=== PATIENT | female | born 1955 | race Caucasian/White ===

== ENCOUNTER → 2016-09-18 | Outpatient (CLI) | payer BC ==
[~2016-09-18] MED LIST: ACET-749 PO; ASPI-232 PO; ATEN-173 PO; CALC-5 PO; CHOL1000 PO; CYAN10004 PO; CYAN1DRO SC; DNSIS60 SQ; DULO60CA44 PO; FERR27TA5; KETO10TA PO; MULTTAB58 PO; NRN/600 PO; OXYC-57 PO; RIVA1TAB4 PO; SERT50TA PO; TOPI100T20 PO; ZCRT/40 PO; ZOLE5INJ IM
--- NOTE | 2016-09-18 10:54 | DIAGNOSTIC IMAGING REPORT ---
MRI OF THE LEFT SHOULDER CLINICAL HISTORY: Left shoulder pain. Clinical concern for adhesive capsulitis. COMPARISON STUDY: No priors. TECHNIQUE: MRI of the left shoulder was performed utilizing various T1 and T2 weighted sequences in the axial, sagittal, coronal planes. IV contrast was not administered for this examination. Note that interpretation is suboptimal without plain film correlate. The examination is significantly degraded by motion artifact. FINDINGS: Rotator cuff: There is tendinopathy of the supraspinatous tendon with a full-thickness tear involving the anterior fibers at the leading age. This is seen on coronal T2 fat-sat image #8 of 19, and the tear measures approximately 9 mm in AP diameter and 4 mm in length. There is no associated musculotendinous retraction. The infraspinatus tendon appears intact. The teres minor and subscapularis tendons are preserved. There is trace subacromial and subdeltoid bursal fluid. Productive degenerative change is seen at the acromioclavicular joint. Biceps tendon: The long head of the biceps tendon is normal in signal intensity and located within the bicipital groove. The anchor is maintained. Labrum: There is mild degenerative fraying of the labrum. Shoulder joint: There is no joint effusion. There is thickening of the coracohumeral ligament as well as the inferior glenohumeral ligament. There is questionably increased signal in the rotator interval. The articular cartilage over the glenoid is well maintained. Normal marrow signal intensity is preserved of the visualized osseous structures. Musculature and soft tissues: The musculature of the shoulder is normal in bulk and signal intensity. No atrophy is seen. IMPRESSION: 1. Motion degraded examination. 2. There is tendinopathy with a full-thickness tear at the leading edge of the supraspinatous tendon as detailed above. No musculotendinous retraction is seen. 3. There is mild thickening of the coracohumeral ligament as well as the inferior glenohumeral ligament. There is questionably increased signal in the rotator interval. These findings are nonspecific but could be seen in the setting of adjacent capsulitis is clinically suggested. Clinical correlation will be essential. Electronically signed by: Khoi Booker M.D. 09/18/2016 10:53 AM Dictated Date/Time: 09/18/2016 10:40 AM
== END ==
LOC: C.MRIBC 09:32
PROVIDERS: ATTEND Orthopaedic Surgery Orthopaedic Surgery of the Spine
DX: M75.02 Adhesive capsulitis of left shoulder (principal)

== ENCOUNTER → 2016-09-25 | Outpatient (CLI) | payer BC ==
[2016-09-25 12:14] LABS: BASO % 0.6 %; BASO ABS # 0.03 K/uL (0-0.2); COMPLETE YES; EOS % 3.6 %; HEMATOCRIT 40.3 % (37-47); LYMPH % 32.1 %; LYMPH ABS # 1.53 K/uL (1.2-3.4); MEAN CELL VOLUME 98.8 fL (80-100); MEAN CORPUSCULAR HEMOGLOBIN 32.4 pg (25-34); MEAN CORPUSCULAR HGB CONC 32.8 g/dl (32-36); MEAN PLATELET VOLUME 9.9 fL (7.4-10.4); MONO % 8.2 %; NEUT % 55.5 %; PLATELET COUNT 226 K/uL (130-400); RED BLOOD COUNT 4.08 M/uL (4.2-5.4); WHITE BLOOD COUNT 4.77 K/uL (4.8-10.8)
[2016-09-25 13:10] LABS: BLOOD UREA NITROGEN 17 mg/dl (7-18); BUN/CREATININE RATIO 25.7 (10-20); CALCIUM 7.9 mg/dl (8.5-10.1); CARBON DIOXIDE 22 mmol/L (21-32); CHLORIDE 116 mmol/L (98-107); CREATININE 0.65 mg/dl (0.60-1.20); GLUCOSE 81 mg/dl (70-99); SODIUM 146 mmol/L (136-145)
== END | disposition home or self-care (01) ==
LOC: C.CPL 11:10
PROVIDERS: ATTEND Orthopaedic Surgery
DX: Z01.818 Encounter for other preprocedural examination (principal)

== ENCOUNTER → 2016-09-30 | Outpatient (CLI) | payer BC ==
[~2016-09-30] MED LIST changes: -SERT50TA PO; -ZOLE5INJ IM
[2016-09-30 12:27] LABS: PROTHROMBIN TIME (PATIENT) 10.5 SECONDS (9.0-12.0)
== END | disposition home or self-care (01) ==
LOC: C.LAB 11:14
PROVIDERS: ATTEND Orthopaedic Surgery
DX: Z01.812 Encounter for preprocedural laboratory examination (principal); M75.02 Adhesive capsulitis of left shoulder

== ENCOUNTER → 2016-10-03 | Day surgery (SDC) | payer BC ==
[2016-09-26 12:16] VITALS: Ht 151.6 cm; Wt 71.4 kg
[~2016-10-03] VITALS: Ht 151.6 cm; Wt 71.4 kg
[~2016-10-03] MED LIST changes: +ATROPINE SULFATE 0.1 MG/ML 5ML SYR IV PRN; +BUPIVACAINE/EPINEPHRINE 0.25% 1:200,000 30 ML VIAL ONE; +CEFAZOLIN 2000 MG/60 ML D5W IV SCH; +CEFAZOLIN SOD 1 GM VIAL ONE; +DEXAMETHASONE SOD INJ 4 MG/ML VIAL ONE; +EpHEDrine SULFATE 50MG/5ML SYR ONE; +EpINEphrine INJ 1MG/ML AMP 1 MG/ML AMP ONE; +FENTANYL CITRATE INJ 50 MCG/1 ML 2 ML VIAL IV PRN; +FENTANYL CITRATE INJ 50 MCG/1 ML 2 ML VIAL ONE; +GLYCOPYRROLATE INJ 0.2 MG/ML VIAL ONE; +KETOROLAC TROMETHAMINE 30 MG/ML VIAL IV. PRN; +LABETALOL HCL IV 5 MG/ML 20ML IV PRN; +LACTATED RINGER'S 1000ML 1,000 ML IV SCH; +LIDOCAINE HCL 2% 2 ML VIAL (20MG/ML) ONE; +METHYLPREDNISOLONE ACETATE 80 MG/ML VIAL ONE; +MIDAZOLAM HCL 1 MG/ML 2ML VIAL ONE; +NEOSTIGMINE METHYLSULFATE 5 MG/5 ML SYR ONE; +ONDANSETRON INJ 2 MG/ML 2 ML VIAL IV PRN; +ONDANSETRON INJ 2 MG/ML 2 ML VIAL ONE; +OXYCODONE/ACETAMINOPHEN 5-325 TAB PO PRN; +PROMETHAZINE HCL INJ 6.25 MG in SODIUM CHLORIDE 0.9% 50ML 50 ML IV PRN; +PROPOFOL IV EMULSION 10 MG/ML 20 ML VIAL IV ONE; +ROCURONIUM BROMIDE 10 MG/ML 5 ML VIAL ONE; +ROPIVACAINE 0.5% 5 MG/ML 30 ML VIAL ONE; +SODIUM CHLORIDE 0.9% 1000ML 1,000 ML IV SCH
--- NOTE | 2016-10-03 06:55 | History & Physical Bridge - SC ---
H&P Re-Evaluation Bridge Note: I have examined the patient, reviewed the History & Physical and in the interval since the performance of the History & Physical I have noted the following changes of clinical significance: No changes noted
--- NOTE | 2016-10-03 09:18 | Discharge Instructions-SurgCtr ---
Discharge Instructions Date of Service Oct 03, 2016. Visit Reason for Visit: Left Adhesive Capsulitis Of Shoulder, Cuff Tear Discharge Discharge Diagnosis / Problem: SAME ABOVE Discharge Goals Goal(s): Decrease discomfort, Improve function Medications Stopped Medications Name(s): XARELTO STOPPED FRIDAY. Restart Stopped Medication(s): AUGUST RESTART 10/03/2016 Activity Recommendations Activity Limitations: as noted below Lifting Limitations: gradually increase as tolerated Exercise/Sports Limitations: gradually increase as tolerated Driving or Machine Use: WHEN OUT OF THE SLING AND PAIN CONTROLLED Anesthesia . Post Anesthesia Instructions: If you have had General Anesthesia or IV Sedation: * Do not drive today. * Resume driving when surgeon permits. * Do not make important decisions or sign legal documents today. * Call surgeon for: 1. Temperature elevations greater than 101 degrees F. 2. Uncontrollable pain. 3. Excessive bleeding. 4. Persistent nausea and vomiting. 5. Medication intolerance (nausea, vomiting or rash). * For nausea and vomiting use only clear liquids such as: tea, soda, bouillon until nausea subsides, then gradually increase diet as tolerated. * If you have any concerns or questions, call your surgeon's office. If physician is unavailable and it is an emergency, call 911 or go to the nearest emergency room. . Instructions / Follow-Up Instructions / Follow-Up MEDICATIONS: * Resume previous medications unless instructed otherwise by your surgeon. * Always take pain medication on a full stomach or with food to avoid upset stomach. * Do not drink alcohol or drive while taking narcotics. * Ibuprofen or Tylenol may be taken if narcotic not needed. SPECIAL CARE INSTRUCTIONS: __ None _X_ Keep extremity elevated and iced x 48 hours; apply ice 20-30 minutes 8-10 times/day. May remove at night. _X_ Sling (WEAR NEEDED ONLY FOR COMFORT) __24 hrs/day __ Remove at night __ Shoulder Immobilizer __ 24 hrs/day __ Remove at night _X_ Dressing __ Maintain until seen in office, may shower with plastic over site _X_ Remove dressings in 24-48 hours and then may shower _X_ Cover incisions with band-aids after showering __ Do not remove steri-strips Call physician if chills or temperature rises above 102 degrees or pain unrelieved by prescribed pain medications at . . Diet Recommendations Home Diet: no limitations Fluid Restriction: None Pending Studies Studies pending at discharge: no Medical Emergencies . Who to Call and When: Medical Emergencies: If at any time you feel your situation is an emergency, please call 911 immediately. . Non-Emergent Contact Non-Emergency issues call your: Primary Care Provider Call Non-Emergent contact if: you have a fever, temperature is above 101.5 . . "Provider Documentation" section prepared by Felix Bearden. .
[2016-10-03 10:00] VITALS: TEMP 36.3
--- NOTE | 2016-10-03 10:27 | Anesthesia Progress Nt - [facility] ---
Anesthesia Post Op Note Date & Time Oct 03, 2016 at 10:26 Vital Signs Pain Intensity: 0 Vital Signs Past 12 Hours Date Time Temp Pulse Resp B/P (MAP) Pulse Ox O2 Delivery O2 Flow Rate FiO2 10/03/16 10:00 36.3 68 16 129/78 (95) 99 Room Air 10/03/16 09:48 69 6 10/03/16 09:48 69 6 97 10/03/16 09:47 36.4 68 14 175/70 98 Room Air 10/03/16 09:46 178/68 10/03/16 09:43 69 0 98 10/03/16 09:43 69 0 10/03/16 09:41 185/62 10/03/16 09:38 68 17 99 10/03/16 09:38 68 17 10/03/16 09:35 159/59 10/03/16 09:33 68 10 10/03/16 09:33 68 10 100 10/03/16 09:28 68 13 10/03/16 09:28 67 13 100 10/03/16 09:26 180/69 10/03/16 09:23 65 16 10/03/16 09:23 65 16 100 10/03/16 09:20 185/72 10/03/16 09:20 182/64 10/03/16 09:19 194/79 10/03/16 09:18 72 19 10/03/16 09:18 72 19 100 10/03/16 09:17 187/68 10/03/16 09:16 36.0 72 16 187/68 100 Diffusion Mask 10/03/16 07:48 0 10/03/16 07:47 0 10/03/16 07:45 152/86 10/03/16 07:42 56 10/03/16 07:42 55 11 100 10/03/16 07:41 147/70 10/03/16 07:37 54 16 100 10/03/16 07:37 54 10/03/16 07:36 153/79 10/03/16 07:33 53 17 96 10/03/16 07:33 52 10/03/16 07:32 55 8 100 10/03/16 07:32 53 10/03/16 07:31 147/78 10/03/16 07:28 53 10/03/16 07:28 53 18 100 10/03/16 07:27 52 9 100 10/03/16 07:27 52 10/03/16 07:26 146/75 10/03/16 07:23 53 21 100 10/03/16 07:23 52 10/03/16 07:22 53 10/03/16 07:22 53 15 100 10/03/16 07:21 144/74 10/03/16 07:17 58 10/03/16 07:17 58 13 100 10/03/16 07:16 61 10/03/16 07:16 62 13 100 10/03/16 07:15 156/81 10/03/16 07:13 158/93 10/03/16 07:11 57 10/03/16 07:11 59 0 100 10/03/16 07:06 56 0 10/03/16 07:06 55 10/03/16 07:01 58 0 100 10/03/16 07:01 58 10/03/16 06:56 56 10/03/16 06:51 57 10/03/16 06:46 56 10/03/16 06:41 57 0 10/03/16 06:28 36.5 56 16 155/77 (103) 100 Room Air Notes Mental Status: alert / awake / arousable, participated in evaluation Pt Amnestic to Procedure: Yes Nausea / Vomiting: adequately controlled Pain: adequately controlled Airway Patency, RR, SpO2: stable & adequate BP & HR: stable & adequate Hydration State: stable & adequate Anesthetic Complications: no major complications apparent Pt's IV at right antecubital fossa infiltrated at time of induction. Tissue around area looks good post op - patient not experiencing any discomfort in the area, very little swelling or erythema.
[2016-10-03 10:37] VITALS: BP 116/67; PULSE 67; O2SAT 98
--- NOTE | 2016-10-03 15:38 | [facility] Post Operative Brief Note ---
Immediate Operative Summary Operative Date Oct 03, 2016. Pre-Operative Diagnosis Left Shoulder Adhesive Capsulitis, Small Rotator Cuff Tear Post-Operative Diagnosis Same Procedure(s) Performed Left Shoulder Arthroscopic Capsular Release, Extensive Debridement, Acromioplasty Surgeon Dr. Dillon Business Process Consultant Surgeon(s) Noman Bearden PA-C Estimated Blood Loss 5 ml Findings as above Specimens None Complication(s) None Disposition Recovery Room / PACU
--- NOTE | 2016-10-03 19:23 | OPERATIVE REPORT ---
DATE OF OPERATION: 10/03/2016 PREOPERATIVE DIAGNOSIS: Adhesive capsulitis of the left shoulder with severe subacromial impingement and possible small rotator cuff tear. POSTOPERATIVE DIAGNOSIS: Adhesive capsulitis of the left shoulder with a large subacromial spur and no rotator cuff tear. PROCEDURE: Left shoulder diagnostic arthroscopy with extensive debridement, lysis of adhesions, acromioplasty. SURGEON: Dr. Sachin Dillon. DRUM HANDLER: Lee Bearden PA-C, whose assistance was necessary for positioning the arm and helping with instrumentation. ANESTHESIA: General with a left interscalene nerve block. COMPLICATIONS: None. CONDITION: Stable to PACU. INDICATIONS: Danii is a pleasant 61-year-old female, who presented to my office with complaints of tightness and pain in her left shoulder. MRI and clinical examination were diagnostic for adhesive capsulitis and a large subacromial spur with possible small cuff tear. After failing conservative treatment, she elected to undergo arthroscopy. DESCRIPTION OF PROCEDURE: On 10/03/2016, she arrived at [facility] for the above procedure. She was seen in the preoperative holding area and the operative extremity was identified and signed. She was given a preoperative antibiotic and a left interscalene nerve block. She was taken back to the operating room, laid on the table in supine position and put under general anesthesia. She was then put into the beach chair position. The left shoulder was prepped and draped in sterile fashion. Time-out was done. The patient and operative extremity was properly identified. A scope was introduced in the posterior portal. Diagnostic arthroscopy showed no cartilage damage to the humeral head or the glenoid. There was significant tightness of the shoulder. There was scarring of the rotator interval as well as the middle and anterior inferior glenohumeral ligaments. An anterior portal was made. An ablator was used to start lysis of adhesions of the entire rotator interval. I released up to the biceps gwen mechanism and down around the base of the coracoid. A shaver was used to do a debridement of any remnant of tissue. The ablator was then used to continue the lysis of adhesions till the middle glenohumeral ligament and the anterior inferior glenohumeral ligament. A shaver was used once again to remove any unstable tissue fragments. This significantly opened up the shoulder. The biceps tendon was checked and completely intact. The rotator cuff was intact from the articular side. The scope was then put into the subacromial space. A lateral portal was made. A shaver was used to do a complete subacromial and subdeltoid bursectomy. The bursal side of the rotator cuff was examined extensively without evidence of tear. An ablator was used to tease the coracoacromial ligament off the undersurface of the acromion and a 5-0 carmelita was used to complete an acromioplasty of a Bigliani type 3 acromion. A shaver was used to remove any excess debris. Arthroscopic instruments were then removed from the shoulder. Manipulation was done under anesthesia. I was able to get full range of motion of the shoulder. Portal sites were then closed with 3-0 nylon. The glenohumeral joint was then injected with 80 mg of Depo-Medrol. She was then placed in a regular arm sling, extubated, transferred to [facility] and taken to the postanesthesia care unit in stable condition. She tolerated the procedure well. I attest to the content of the Intraoperative Record and any orders documented therein. Any exception s are noted below.
== END | disposition home or self-care (01) ==
LOC: X.SURG 06:11
PROVIDERS: ATTEND Orthopaedic Surgery
DX: M75.02 Adhesive capsulitis of left shoulder (principal); M25.812 Other specified joint disorders, left shoulder; M75.82 Other shoulder lesions, left shoulder; I10 Essential (primary) hypertension; E66.9 Obesity, unspecified; E11.9 Type 2 diabetes mellitus without complications; I48.0 Paroxysmal atrial fibrillation; Z98.890 Other specified postprocedural states; Z98.84 Bariatric surgery status; Z90.49 Acquired absence of other specified parts of digestive tract; Z68.36 Body mass index [BMI] 36.0-36.9, adult; Z85.038 Personal history of other malignant neoplasm of large intestine; Z82.49 Family history of ischemic heart disease and other diseases of the circulatory system; Z83.3 Family history of diabetes mellitus; Z80.1 Family history of malignant neoplasm of trachea, bronchus and lung

== ENCOUNTER → 2017-01-02 | Day surgery (SDC) | payer BC ==
[2017-01-01 09:06] VITALS: Ht 152.4 cm; Wt 70.5 kg
[~2017-01-02] VITALS: Ht 152.4 cm; Wt 70.5 kg
[~2017-01-02] MED LIST changes: -ACET-749 PO; +BUPIVACAINE 0.5 % 5 MG/1 ML PF 10ML VIAL ONE; -BUPIVACAINE/EPINEPHRINE 0.25% 1:200,000 30 ML VIAL ONE; -CEFAZOLIN 2000 MG/60 ML D5W IV SCH; -CEFAZOLIN SOD 1 GM VIAL ONE; -DEXAMETHASONE SOD INJ 4 MG/ML VIAL ONE; -EpHEDrine SULFATE 50MG/5ML SYR ONE; +EpHEDrine SULFATE INJ 50 MG/ML AMP IV PRN; -EpINEphrine INJ 1MG/ML AMP 1 MG/ML AMP ONE; -GLYCOPYRROLATE INJ 0.2 MG/ML VIAL ONE; -KETO10TA PO; -KETOROLAC TROMETHAMINE 30 MG/ML VIAL IV. PRN; -LABETALOL HCL IV 5 MG/ML 20ML IV PRN; -LIDOCAINE HCL 2% 2 ML VIAL (20MG/ML) ONE; -NEOSTIGMINE METHYLSULFATE 5 MG/5 ML SYR ONE; -ONDANSETRON INJ 2 MG/ML 2 ML VIAL ONE; -PROMETHAZINE HCL INJ 6.25 MG in SODIUM CHLORIDE 0.9% 50ML 50 ML IV PRN; -PROPOFOL IV EMULSION 10 MG/ML 20 ML VIAL IV ONE; -ROCURONIUM BROMIDE 10 MG/ML 5 ML VIAL ONE
[2017-01-02 13:21] VITALS: TEMP 36.7
--- NOTE | 2017-01-02 15:44 | Discharge Instructions-SurgCtr ---
Discharge Instructions Date of Service Jan 02, 2017. Visit Reason for Visit: Left Shoulder Adhesive Capsulitis Discharge Discharge Diagnosis / Problem: SAME ABOVE Discharge Goals Goal(s): Decrease discomfort, Improve function Activity Recommendations Activity Limitations: as noted below Lifting Limitations: gradually increase as tolerated Exercise/Sports Limitations: gradually increase as tolerated Shower/Bathe: tomorrow Driving or Machine Use: WHEN OUT OF THE SLING AND OFF OF MEDICATIONS Anesthesia . Post Anesthesia Instructions: If you have had General Anesthesia or IV Sedation: * Do not drive today. * Resume driving when surgeon permits. * Do not make important decisions or sign legal documents today. * Call surgeon for: 1. Temperature elevations greater than 101 degrees F. 2. Uncontrollable pain. 3. Excessive bleeding. 4. Persistent nausea and vomiting. 5. Medication intolerance (nausea, vomiting or rash). * For nausea and vomiting use only clear liquids such as: tea, soda, bouillon until nausea subsides, then gradually increase diet as tolerated. * If you have any concerns or questions, call your surgeon's office. If physician is unavailable and it is an emergency, call 911 or go to the nearest emergency room. . Diet Recommendations Home Diet: no limitations Fluid Restriction: None Pending Studies Studies pending at discharge: no Work Instructions Return To Work: 3 days (WHEN PAIN IS CONTROLLED ) Lifting Limitations: none Medical Emergencies . Who to Call and When: Medical Emergencies: If at any time you feel your situation is an emergency, please call 911 immediately. . Non-Emergent Contact Non-Emergency issues call your: Primary Care Provider Call Non-Emergent contact if: you have a fever, temperature is above 101.5 . . "Provider Documentation" section prepared by Felix Bearden. .
--- NOTE | 2017-01-02 15:54 | [facility] Post Operative Brief Note ---
Immediate Operative Summary Operative Date Jan 02, 2017. Pre-Operative Diagnosis Left Shoulder Adhesive Capsulitis Post-Operative Diagnosis Same Procedure(s) Performed Left Shoulder Manipulation Under Anesthesia Surgeon Dr Dillon Staff Trainer Surgeon(s) Lee Bearden PA-C Estimated Blood Loss 0ml Findings as above Specimens None Complication(s) None Disposition Recovery Room / PACU
--- NOTE | 2017-01-02 15:58 | Anesthesiology Progress Note ---
Anesthesia Post Op Note Date & Time Jan 02, 2017 at 15:57 Vital Signs Pain Intensity: 0 Vital Signs Past 12 Hours Date Time Temp Pulse Resp B/P (MAP) Pulse Ox O2 Delivery O2 Flow Rate FiO2 01/02/17 15:41 90/73 01/02/17 15:38 73 7 98 01/02/17 15:38 73 01/02/17 15:36 142/69 01/02/17 15:33 81 01/02/17 15:33 81 8 99 01/02/17 15:31 142/76 01/02/17 15:28 81 01/02/17 15:28 81 13 99 01/02/17 15:26 154/81 01/02/17 15:23 82 45 99 01/02/17 15:23 82 01/02/17 15:21 148/68 01/02/17 15:18 72 13 100 01/02/17 15:18 72 01/02/17 15:16 155/77 01/02/17 15:13 70 01/02/17 15:13 71 0 100 01/02/17 15:11 155/74 01/02/17 15:08 75 100 01/02/17 15:08 75 01/02/17 15:06 147/81 01/02/17 15:03 68 100 01/02/17 15:03 66 01/02/17 15:01 136/83 01/02/17 14:58 68 100 01/02/17 14:58 69 01/02/17 14:56 142/78 01/02/17 14:53 65 01/02/17 14:53 65 155/73 100 01/02/17 14:48 65 01/02/17 13:21 36.7 66 16 137/84 (101) 97 Room Air Notes Mental Status: alert / awake / arousable, participated in evaluation Pt Amnestic to Procedure: Yes Nausea / Vomiting: adequately controlled Pain: adequately controlled Airway Patency, RR, SpO2: stable & adequate BP & HR: stable & adequate Hydration State: stable & adequate Anesthetic Complications: no major complications apparent
[2017-01-02 16:24] VITALS: BP 128/76; PULSE 66; O2SAT 99
--- NOTE | 2017-01-02 20:03 | OPERATIVE REPORT ---
DATE OF OPERATION: 01/02/2017 PREOPERATIVE DIAGNOSIS: Adhesive capsulitis of the left shoulder. POSTOPERATIVE DIAGNOSIS: Same. PROCEDURE: Manipulation under anesthesia, left shoulder. SURGEON: Dr. Sachin Dillon. LABORATORY ANALYST: Lee Bearden PA-C, whose assistance was necessary to help position the patient and help with manipulation. ANESTHESIA: Sedation with a left interscalene nerve block. COMPLICATIONS: None. CONDITION: Stable to PACU. INDICATIONS: Danii is a pleasant 61-year-old female who I did a capsular release on about 3 months ago. She had initially full range of motion, but unfortunately, she tightened back up. She elected to proceed with manipulation. On 01/02/2017, she arrived at [facility] for the above procedure. She was seen in the preoperative holding area and the operative extremity was identified and signed. She was given a left interscalene nerve block and taken back to the operating room, laid on the table in supine position and given basic sedation. A time-out was done and the patient and operative extremity was properly identified. On preoperative physical examination, she had about 80 degrees of abduction and 50 degrees of external rotation and 20 degrees of internal rotation. A gentle manipulation was then done under anesthesia. I was able to break up the adhesions mostly in the interval as well as the inferior glenohumeral ligament. I was able to get full range of motion of her shoulder. I then gave her an intraarticular injection with 80 mg of Depo-Medrol and 5 mL of Marcaine. A Band-Aid was placed. She was then placed in an arm sling and taken to the postanesthesia care unit in stable condition. She tolerated the procedure well. I attest to the content of the Intraoperative Record and any orders documented therein. Any exception s are noted below.
== END | disposition home or self-care (01) ==
LOC: X.SURG 12:57
PROVIDERS: ATTEND Orthopaedic Surgery
DX: M75.02 Adhesive capsulitis of left shoulder (principal); F32.9 Major depressive disorder, single episode, unspecified; K44.9 Diaphragmatic hernia without obstruction or gangrene; Z98.84 Bariatric surgery status; Z90.49 Acquired absence of other specified parts of digestive tract; Z83.3 Family history of diabetes mellitus; Z82.49 Family history of ischemic heart disease and other diseases of the circulatory system

== ENCOUNTER 2017-11-13 15:05 | Emergency (ER) | payer BC, OTHER ==
[~2017-11-13] VITALS: Ht 152.4 cm; Wt 68.8 kg
[~2017-11-13 15:05] MED LIST changes: -ATEN-173 PO; -ATROPINE SULFATE 0.1 MG/ML 5ML SYR IV PRN; -BUPIVACAINE 0.5 % 5 MG/1 ML PF 10ML VIAL ONE; -CYAN1DRO SC; -EpHEDrine SULFATE INJ 50 MG/ML AMP IV PRN; -FENTANYL CITRATE INJ 50 MCG/1 ML 2 ML VIAL IV PRN; -FENTANYL CITRATE INJ 50 MCG/1 ML 2 ML VIAL ONE; -FERR27TA5; +FERR27TA5 PO; -LACTATED RINGER'S 1000ML 1,000 ML IV SCH; -METHYLPREDNISOLONE ACETATE 80 MG/ML VIAL ONE; -MIDAZOLAM HCL 1 MG/ML 2ML VIAL ONE; -ONDANSETRON INJ 2 MG/ML 2 ML VIAL IV PRN; -OXYC-57 PO; -OXYCODONE/ACETAMINOPHEN 5-325 TAB PO PRN; -ROPIVACAINE 0.5% 5 MG/ML 30 ML VIAL ONE; -SODIUM CHLORIDE 0.9% 1000ML 1,000 ML IV SCH; -TOPI100T20 PO
[2017-11-13 15:09] VITALS: TEMP 36.8; Ht 152.4 cm; Wt 68.8 kg
[2017-11-13] MEDS ORDERED: CYAN1DRO SC (15:26)
--- NOTE | 2017-11-13 16:16 | DIAGNOSTIC IMAGING REPORT ---
L-SPINE MIN 4 VIEWS ROUTINE CLINICAL HISTORY: Low back pain. Clinical accident. COMPARISON STUDY: No previous studies for comparison. FINDINGS: There is no pathologic bowel dilatation. There are surgical clips within the right upper quadrant consistent with a prior cholecystectomy. There are postsurgical changes of an L4-5 discectomy and interbody fusion. There is posterior pedicle screw fixation at the L4, L5, and S1 levels. No acute fractures or traumatic subluxations are visualized. IMPRESSION: 1. Postsurgical changes 2. No acute fractures or traumatic subluxations are visualized Electronically signed by: Rob Perez M.D. 11/13/2017 4:15 PM Dictated Date/Time: 11/13/2017 4:14 PM
[2017-11-13] MEDS ORDERED: ATEN-173 PO (16:19)
[2017-11-13] MEDS ORDERED: CYM/30 PO (16:24)
[2017-11-13] MEDS ORDERED: LXP10 PO (16:24)
[2017-11-13] MEDS ORDERED: LYR100 PO (16:24)
[2017-11-13] MEDS ORDERED: MORP15TA PO (16:24)
[2017-11-13 17:00] VITALS: BP 124/67; PULSE 66; O2SAT 98
[2017-11-13] MEDS ORDERED: TOPI100T20 PO (18:37)
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
== END 2017-11-13 17:00 | disposition home or self-care (01) ==
LOC: C.EDB 15:07 → C.EDD 17:00
DX: M54.5 Low back pain (principal); V49.40XA Driver injured in collision with unspecified motor vehicles in traffic accident, initial encounter; Z98.890 Other specified postprocedural states; Z79.891 Long term (current) use of opiate analgesic; Z79.899 Other long term (current) drug therapy; Z79.82 Long term (current) use of aspirin

== ENCOUNTER 2022-11-04 08:59 | Inpatient (IN) ==
--- NOTE | 2022-11-04 09:25 | Emergency Department Note ---
ED Provider Note History of Present Illness Chief Complaint: Arm Pain Stated Complaint: RT ARM INJURY Time Seen by Provider: 11/04/22 09:06 This patient is a 67-year-old female who presents to the emergency department for evaluation of multiple falls over the past week. Patient reports that she fell twice 4 days ago while trying to get out of the car. She states that she lost her balance reaching for the door and "face planted." She injured her right arm/shoulder. Patient states that she also fell out of bed last night. She was trying to get her pills organized for the day when she dropped some and fell when bending over. She did strike her head during a few of the falls. She primarily complains of pain in the right arm with significant bruising and swelling throughout the arm. She has a wound on her right leg which she has been seeing the wound clinic for and she states it has been improving significantly. She normally has some swelling and redness of that calf and states it is looking quite good at this time. Patient states that overall she has been feeling okay other than these falls. Home Medications Medication Instructions Recorded Confirmed Type denosumab 60 mg/mL subcutaneous 60 mg subcut Q6MO #1 mL 01/26/19 11/04/22 Rx syringe (Prolia) pregabalin 100 mg capsule (Lyrica) 100 mg PO TID #90 caps 01/26/19 11/04/22 Rx multivitamin (Multiple Vitamins 1 tab PO QAM 04/05/19 11/04/22 History tablet) simvastatin 40 mg tablet 20 mg PO QPM 10/11/19 11/04/22 History calcium carbonate 500 mg calcium 500 mg PO QAM 11/04/19 11/04/22 History (1,250 mg) tablet (Calcium 500) cholecalciferol (vitamin D3) 25 25 mcg PO QAM 11/04/19 11/04/22 History mcg (1,000 unit) tablet (Vitamin D3) ferrous sulfate 325 mg (65 mg 0 mg PO QPM 11/04/19 11/04/22 History iron) tablet aspirin 81 mg tablet,delayed 81 mg PO QAM 08/22/21 11/04/22 History release mirabegron 25 mg tablet,extended 25 mg PO QAM 08/22/21 11/04/22 History release 24 hr (Myrbetriq) sertraline 50 mg tablet 50 mg PO QAM 08/22/21 11/04/22 History furosemide 20 mg tablet (Lasix) 20 mg PO DAILY 10/07/22 11/04/22 History omeprazole 20 mg tablet,delayed 20 mg PO DAILY PRN Other 10/07/22 11/04/22 History release morphine 15 mg immediate release 15 mg PO Q4H PRN Pain 10/21/22 11/04/22 History tablet Allergies Allergy/AdvReac Type Severity Reaction Status Date / Time sulfamethoxazole Allergy Mild rash Verified 10/21/22 10:07 [From Bactrim] trimethoprim [From Bactrim] Allergy Mild rash Verified 10/21/22 10:07 Past Med/Surg History Medical History Ambulatory dysfunction Anemia Atrial fibrillation DX 2008 - FOLLOWS W/ DR. ACEVEDO -- TAKES XARELTO PRN ATRIAL FIB Chronic back pain Chronic headaches Degenerative disc disease Depression GERD (gastroesophageal reflux disease) History of esophageal dilatation Hyperlipemia Hypomagnesemia Malignant neoplasm of colon H/O Osteoporosis Right humeral fracture Spinal cord stimulator status Surgical History H/O gastric bypass History of ankle surgery RT History of bilateral breast reduction surgery History of brain surgery 2009 - removal benign tumor History of cardiac catheterization 2005 - [facility] - NO STENTS/ANGIOPLASTY History of carpal tunnel release Rt History of cataract surgery left History of cervical spinal surgery ROM WNL History of cholecystectomy History of colonoscopy History of colonoscopy with polypectomy malignant polyp History of D&C History of esophagogastroduodenoscopy (EGD) History of lumbar spinal fusion X 2 History of repair of hiatal hernia History of tooth extraction History of total abdominal hysterectomy and bilateral salpingo-oophorectomy W/ APPENDECTOMY S/P insertion of spinal cord stimulator (~02/2021) Status post panniculectomy 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 Status post trigger finger release Family History Mother Diabetes Other No family history of adverse response to anesthesia Social History Smoking Status: Never smoker Second Hand Exposure: Yes; Do You Dip or Chew Tobacco: No; Hx Alcohol Use: Yes Alcohol Intake Frequency: Monthly or Less Hx Substance Use: No Preferred Language: Dominican Communication Ability: Effective Visual Impairment: No Limitations Hearing Ability: Normal Knife Blade Polisher Required: No Beliefs That Will Affect Care: None marital status: Current Living Situation: Spouse current occupational status: retired Other Information That Helps Us Care for You: No Feels Safe at Home: Yes Safety Concerns: Feels Safe At This Time Diet: regular caffeine: No Do you think of yourself as: straight/heterosexual Gender Identity: Female Assistive Devices: Cane and Walker Physical Exam Vital Signs Vital Signs - 24 hr 11/04/22 09:00 11/04/22 09:43 11/04/22 11:12 Temperature 36.8 C Temperature Source Temporal Artery Scan Pulse Rate 87 74 Pulse Rate [Left Finger] 72 Pulse Rate from SpO2 Sensor Pulse Rhythm Regular Respiratory Rate 16 20 Respiratory Effort / Characteristics Non-Labored Spontaneous Respiratory Depth Normal Blood Pressure 111/62 Blood Pressure [Left Arm] 107/63 Blood Pressure Mean 78 Blood Pressure Mean [Left Arm] 77 Pulse Oximetry 100 98 Sepsis Recent Fever Within 48 Hours No Sepsis New/Unexplained Change in Mental Status No Sepsis Action Taken by Nursing No Action Required 11/04/22 11:06 Temperature Temperature Source Pulse Rate 72 Pulse Rate [Left Finger] Pulse Rate from SpO2 Sensor 71 Pulse Rhythm Respiratory Rate 19 Respiratory Effort / Characteristics Respiratory Depth Blood Pressure 107/63 Blood Pressure [Left Arm] Blood Pressure Mean 77 Blood Pressure Mean [Left Arm] Pulse Oximetry 96 Sepsis Recent Fever Within 48 Hours Sepsis New/Unexplained Change in Mental Status Sepsis Action Taken by Nursing VITALS: Vitals are noted on the nurse's note and reviewed by myself. GENERAL: This is a 67-year-old female, in no acute distress, well-developed well-nourished. SKIN: There is significant ecchymosis and dependent edema to the right upper extremity extending from the mid humerus down to the hand. HEAD: Normocephalic atraumatic. Small area of ecchymosis to the right frontal scalp. EARS: External auditory canals clear, tympanic membranes pearly hillman without erythema or effusion bilaterally. No hemotympanum. EYES: Pupils equal round and reactive to light and accommodation. Extraocular movements intact. NECK: Supple without nuchal rigidity. Cervical spine is nontender. HEART: Regular rate and rhythm without murmurs gallops or rubs. LUNGS: Clear to auscultation bilaterally without wheezes, rales or rhonchi. MUSCULOSKELETAL: No obvious deformity noted. There is edema to the anterior right shoulder. There is tenderness to palpation of the anterior right shoulder and proximal humerus. Mild tenderness throughout the right forearm. Decreased range of motion of the right shoulder. Radial pulse 2+. RECTAL: Light brown stool, heme negative. NEURO: Patient was alert and oriented to person place and time. Distal sensation intact. Course Administered Medications Acetaminophen (Acetaminophen 325 Mg Tab) 650 mg PO Q4H PRN PRN Reason: Pain or Fever Stop: 12/04/22 12:23 Last Admin: 11/05/22 08:17 Dose: 650 mg Documented By: Admin: 11/04/22 20:59 Dose: 650 mg Documented By: RENETTA Aspirin (Aspirin 81 Mg Ectab) 81 mg PO QAM [facility] Stop: 12/05/22 08:59 Last Admin: 11/05/22 08:10 Dose: 81 mg Documented By: HERB Calcium Carbonate (Calcium Carbonate 500 Mg Chewable Tab) [facility] [place] Stop: 12/05/22 08:59 Last Admin: 11/05/22 08:10 Dose: 500 mg Documented By: HERB Ferrous Sulfate (Ferrous Sulfate 325 Mg Tab) 325 mg PO QPM [facility] Stop: 12/04/22 20:59 Last Admin: 11/04/22 20:58 Dose: 325 mg Documented By: RENETTA Furosemide (Furosemide 20 Mg Tab) 20 mg PO DAILY MARIEFR Stop: 12/05/22 08:59 Last Admin: 11/05/22 08:11 Dose: 20 mg Documented By: HERB Cefazolin Sodium (Ancef 2000mg) 2,000 mg in 15 mls @ 3.75 mls/min IV Q8H [facility] Stop: 11/11/22 13:59 Last Admin: 11/05/22 13:42 Dose: 3.75 mls/min Documented By: Admin: 11/05/22 06:05 Dose: 3.75 mls/min Documented By: Admin: 11/04/22 20:57 Dose: 3.75 mls/min Documented By: Admin: 11/04/22 16:55 Dose: 3.75 mls/min Documented By: HERB Morphine Sulfate (Morphine Sulfate Ir 15 Mg Tab (Immediate Release)) 15 mg PO Q4H PRN PRN Reason: Pain Stop: 11/18/22 15:21 Last Admin: 11/05/22 11:55 Dose: 15 mg Documented By: Admin: 11/05/22 06:05 Dose: 15 mg Documented By: Admin: 11/04/22 20:57 Dose: 15 mg Documented By: Admin: 11/04/22 16:55 Dose: 15 mg Documented By: HERB Ondansetron HCl (Ondansetron Inj 2 Mg/Ml 2 Ml Vial) 4 mg IV Q6H PRN PRN Reason: Nausea Stop: 12/04/22 12:23 Last Admin: 11/05/22 13:41 Dose: 4 mg Documented By: HERB Pregabalin (Pregabalin 100 Mg Cap) 100 mg PO TID [facility] Stop: 12/04/22 20:59 Last Admin: 11/05/22 13:42 Dose: 100 mg Documented By: Admin: 11/05/22 08:17 Dose: 100 mg Documented By: Admin: 11/04/22 20:57 Dose: 100 mg Documented By: RENETTA Sertraline HCl (Sertraline Hcl 50 Mg Tablet) 50 mg PO QAM [facility] Stop: 12/05/22 08:59 Last Admin: 11/05/22 08:11 Dose: 50 mg Documented By: HERB Simvastatin (Simvastatin 20 Mg Tab) 20 mg PO QPM [facility] Stop: 12/04/22 20:59 Last Admin: 11/04/22 20:58 Dose: 20 mg Documented By: RENETTA Vibegron (Vibegron 75 Mg Tab) 75 mg PO QAM [facility] Stop: 12/05/22 08:59 Last Admin: 11/05/22 08:11 Dose: 75 mg Documented By: HERB Vitamin D (Cholecalciferol 1,000 Units 25 Mcg Tab) 1,000 units PO QAM [facility] Stop: 12/05/22 08:59 Last Admin: 11/05/22 08:11 Dose: 1,000 units Documented By: HERB Discontinued Medications Magnesium Sulfate/Dextrose (Magnesium Sulfate / D5w) 1 gm in 100 mls @ 50 mls/hr IV Q2H [facility] Stop: 11/04/22 16:29 Last Infusion: 11/05/22 00:20 Dose: 0 mls/hr Documented By: Admin: 11/04/22 18:41 Dose: 50 mls/hr Documented By: Infusion: 11/04/22 18:41 Dose: 50 mls/hr Documented By: Admin: 11/04/22 16:55 Dose: 50 mls/hr Documented By: HERB Morphine Sulfate (Morphine Sulfate Ir 15 Mg Tab (Immediate Release)) 15 mg PO NOW STA Stop: 11/04/22 11:38 Last Admin: 11/04/22 12:55 Dose: 15 mg Documented By: TOY Potassium Chloride (Potassium Chloride Crtab 20 Meq Tabcr) 40 meq PO NOW STA Stop: 11/05/22 13:26 Last Admin: 11/05/22 13:42 Dose: 40 meq Documented By: HERB Medical Decision Making Differential Diagnosis Infection, dehydration, metabolic abnormality, hypo/hyperglycemia, electrolyte disturbance, anemia, hypoxia, cardiac sources, intracerebral event, toxicologic, neurologic, as well as other pathologies. Home Medications was personally reviewed by me Laboratory Data Attestation: I reviewed the patient's lab results. 11/04/22 09:20 11/04/22 09:20 Lab Results 11/04/22 11/04/22 11/04/22 Range/Units 09:20 09:20 11:20 WBC 5.31 (4.8-10.8) K/ul RBC 3.01 L (4.20-5.40) M/uL Hgb 9.2 L (12.0-16.0) g/dl Hct 27.5 L (37.0-47.0) % MCV 91.4 (80.0-100.0) fL MCH 30.6 (25.0-34.0) pg MCHC 33.5 (32.0-36.0) g/dL RDW Std Deviation 43.1 (36.4-46.3) fL RDW Coeff of Conchita 13.2 (11.5-14.5) % Plt Count 153 (130-400) K/uL MPV 10.5 (9.4-12.4) fL Immature Gran % (Auto) 0.9 % Neut % (Auto) 61.1 % Lymph % (Auto) 23.7 % [place] % (Auto) 12.2 % Eos % (Auto) 1.5 % Baso % (Auto) 0.6 % Neut # (Auto) 3.24 (1.40-6.50) K/uL Lymph # (Auto) 1.26 (1.2-3.4) K/uL [place] # (Auto) 0.65 H (0.11-0.59) K/uL Eos # (Auto) 0.08 (0-0.50) K/uL Baso # (Auto) 0.03 (0-0.2) K/uL Immature Gran # (Auto) 0.05 (0.01-0.20) K/uL Sodium 141 (136-145) mmol/L Potassium 3.5 (3.5-5.1) mmol/L Chloride 102 (98-107) mmol/L Carbon Dioxide 34 H (21-32) mmol/L Anion Gap 5 (3-11) BUN 21 (6-23) mg/dl Creatinine 0.64 (0.6-1.2) mg/dl Est Cr Clr Drug Dosing 60.4 ml/min Est GFR ( Amer) 106.3 ml/min Est GFR (Non-Af Amer) 91.7 ml/min BUN/Creatinine Ratio 32.8 H (10-20) Glucose 125 H (70-99(Fasting)) mg/dl Calcium 8.4 L (8.6-10.3) mg/dl Magnesium 1.3 L (1.7-2.4) mg/dl Iron 37 (35-150) mcg/dl Unsaturated IBC 126 L (155-355) mcg/dl Transferrin 122 L (200-360) mg/dl Ferritin 123.1 (8-388) ng/ml Total Bilirubin 0.9 (0.2-1.0) mg/dl AST 28 (13-39) U/L ALT 26 (7-52) U/L Alkaline Phosphatase 78 (34-104) U/L Total Protein 5.4 L (6.0-8.3) gm/dl Albumin 2.9 L (3.4-5.0) gm/dl Globulin 2.5 (2.5-4.0) gm/dl Albumin/Globulin Ratio 1.2 (0.9-2) SARS-CoV-2, RNA, NAAT NEGATIVE (NEGATIVE) Imaging Data Attestation: I personally reviewed and interpreted this imaging study as follows: Radiologist's Impression: Cervical Spine CT 11/04/22 09:19 CT cervical spine wo con CLINICAL HISTORY: 67 years-old Female with multiple falls, head injury. COMPARISON: Head CT of same day, CT cervical spine 6 25,015. TECHNIQUE: Multiple axial CT images of the cervical spine were obtained without contrast. A dose lowering technique was utilized adhering to the principles of ALARA. FINDINGS: Anterior plate and screw fusion with discectomy noted at C4-C6. There is progressive near-complete bony fusion of these levels which has progressed compared to the prior. No evidence of hardware complication. Mild multilevel uncovertebral hypertrophy and facet arthrosis of the cervical spine. Severe upper thoracic facet arthrosis. Multiple endplate compression of the T3 vertebral body is likely chronic, however is new from prior. No retropulsion. No acute fracture or subluxation. Mild cervical levoscoliosis. The cervical soft tissues appear unremarkable. The visualized lung apices appe ar clear. IMPRESSION: No acute cervical spine fracture or subluxation. ACT 112: Negative or not required by law. The above report was generated using voice recognition software. It may contain grammatical, syntax or spelling errors. Electronically signed by: Colten Dickson M.D. 11/04/2022 10:35 AM Forearm X-Ray 11/04/22 09:19 XR forearm RT 2V HISTORY: 67 years-old Female right arm pain, injury COMPARISON: Right humerus radiograph the same day TECHNIQUE: 2 views of the right forearm FINDINGS: Moderate diffuse soft tissue swelling. Mild cortical thickening of the distal radial metaphysis. No definite acute fracture, dislocation or opaque foreign body identified. Nondisplaced coronoid process fracture the proximal ulna with mild corticated margins. Questioned acute nondisplaced fracture of the distal humeral metaphysis. IMPRESSION: 1. Cortical thickening of the distal radius suggestive of a healed chronic fracture. 2. Acute to subacute appearing nondisplaced coronoid process fracture. 3. Ill-defined lucency of the distal humeral metaphysis may be artifactual or represent a subtle acute nondisplaced fracture. 4. Moderate diffuse soft tissue swelling. ACT 112: Negative or not required by law. The above report was generated using voice recognition software. It may contain grammatical, syntax or spelling errors. Electronically signed by: Colten Dickson M.D. 11/04/2022 11:30 AM Humerus X-Ray 11/04/22 09:19 XR shoulder RT min 2V routine, XR humerus RT 2V CLINICAL HISTORY: right shoulder pain. Fall. COMPARISON STUDY: None. FINDINGS: Comminuted and displaced right humeral neck fracture which extends through the greater tuberosity of the humeral head. No dislocation. There is up to 1 cm of anterior displacement. The right clavicle is intact. Soft tissue swelling within the right shoulder is noted. The mid to distal humerus is intact. Cervical spinal fusion hardware and spinal stimulator leads are noted. IMPRESSION: 1. Comminuted and displaced right humeral head/neck fracture. 2. No fractures within the mid to distal right humerus. ACT 112: Negative or not required by law. Electronically signed by: Alejandro Walsh M.D. 11/04/2022 10:54 AM Shoulder X-Ray 11/04/22 09:19 XR shoulder RT min 2V routine, XR humerus RT 2V CLINICAL HISTORY: right shoulder pain. Fall. COMPARISON STUDY: None. FINDINGS: Comminuted and displaced right humeral neck fracture which extends through the greater tuberosity of the humeral head. No dislocation. There is up to 1 cm of anterior displacement. The right clavicle is intact. Soft tissue swelling within the right shoulder is noted. The mid to distal humerus is intact. Cervical spinal fusion hardware and spinal stimulator leads are noted. IMPRESSION: 1. Comminuted and displaced right humeral head/neck fracture. 2. No fractures within the mid to distal right humerus. ACT 112: Negative or not required by law. Electronically signed by: Alejandro Walsh M.D. 11/04/2022 10:[address] 11/04/22 09:20 CT OF THE HEAD WITHOUT CONTRAST CLINICAL HISTORY: multiple falls, head injury COMPARISON STUDY: Head CT October 06, 2014. CT DOSE: 1082.50 mGy.cm TECHNIQUE: Helical axial images of the head were obtained without IV contrast. Automated exposure control was utilized for the study. A dose lowering technique was utilized adhering to the principles of ALARA. FINDINGS: No acute intracranial hemorrhage, midline shift or mass effect is present. The ventricular system is unremarkable. The basal cisterns are patent. No extra-axial collections are present. There are no findings to suggest acute dural sinus thrombosis or acute territorial infarct. No significant calvarial abnormalities are present. Visualized portions of the sinuses and mastoid air cells are clear. Left frontal craniotomy is incidentally noted. IMPRESSION: 1. No acute intracranial findings. No change in appearance of the brain. 2. No calvarial fracture. ACT 112: Negative or not required by law. Electronically signed by: Jeremy Arango M.D. 11/04/2022 10:35 AM Chest X-Ray 11/04/22 11:37 XR chest 1V portable CLINICAL HISTORY: weakness COMPARISON STUDY: Chest radiograph October 04, 2022 FINDINGS: Lung volumes are normal. Lungs are clear. There is no pneumothorax or pleural effusion. Cardiac size is normal. Mediastinal contours are normal. There is no evidence for pulmonary edema. An acute comminuted displaced right humeral head and neck fracture is incidentally noted. There are postoperative findings within the spine. Stimulator device is noted. IMPRESSION: 1. No acute cardiopulmonary findings. 2. Acute comminuted displaced right humeral head and neck fracture. ACT 112: Negative or not required by law. Electronically signed by: Jeremy Arango M.D. 11/04/2022 12:20 PM Elbow X-Ray 11/04/22 11:37 XR elbow RT 2V CLINICAL HISTORY: right elbow injury COMPARISON STUDY: Right forearm 11/04/2022. FINDINGS: Questionable subtle lucency at the distal humerus. A nondisplaced fracture is not excluded. Subacute to chronic appearing coronoid process of fracture again noted. Soft tissue swelling within the right elbow. An elbow effusion is not confirmed with this could be due to patient positioning. No dislocation. IMPRESSION: 1. Questionable subtle lucency at the distal humerus. This could be due to overlapping artifact or a nondisplaced fracture. 2. Subacute to chronic coronoid process fracture again noted. 3. Diffuse soft tissue swelling. ACT 112: Negative or not required by law. Electronically signed by: Alejandro Walsh M.D. 11/04/2022 12:[address] 11/04/22 11:[address] DOSE: 838.99 mGy.cm HISTORY: right humerus fx TECHNIQUE: Multiaxial CT images of the right humerus were performed and reformatted in the sagittal and coronal plane without the use of contrast. A dose lowering technique was utilized adhering to the principles of ALARA. COMPARISON: Right humerus radiograph 11/04/2022. FINDINGS: Comminuted and is displaced right humeral neck fracture which extends through the greater tuberosity of the humeral head. The fracture is slightly impacted and demonstrates up to 11 mm of lateral displacement. The fracture does not extend to the articular surface of the humeral head. No dislocation. The visualized distal right clavicle, right scapula, and right ribs are intact. Diffuse subcutaneous edema within the right upper extremity. There is a right shoulder effusion/hemarthrosis noted. No definite fractures identified within the distal right humerus or elbow. Small avulsion fracture at the coronoid pro cess appears to be chronic. No significant elbow effusion. IMPRESSION: 1. Redemonstration of a comminuted and mildly displaced right humeral neck/head fracture. No dislocations within the right shoulder. 2. No acute fractures within the distal right humerus/elbow. 3. Diffuse soft tissue swelling within the right upper extremity. ACT 112: Negative or not required by law. Electronically signed by: Alejandro Walsh M.D. 11/04/2022 12:50 PM MDM Narrative This patient is a 67-year-old female who presents to the emergency department fo r evaluation of multiple recent falls. Patient has had some generalized weakness. She was found to be anemic, hemoglobin has dropped from 12.3-9.2 over the past month. Given this drop patient will need admission for further work- up. Rectal exam was heme negative. Patient was found to have a comminuted and displaced humeral head/neck fracture. She also has questionable fracture of the distal humerus as well as a fracture of the coronoid process. I did speak with orthopedics who requested a CT of the humerus which was ordered. Patient placed in a sling. She was admitted to the hospitalist service for further care. Impression Anemia, Frequent falls, Fracture of head of humerus Discharge Plan Visit Data Chief Complaint: Arm Pain Stated Complaint: RT ARM INJURY ED Provider: Alex Beasley ED Midlevel Provider: Antonina Becerra Discharge Problem: Anemia, Frequent falls, Fracture of head of humerus Patient Disposition: Admitted As Inpatient Discharge Instructions Interventions: ED Discharge Assessment Last Done: 11/04/22 14:54
[2022-11-04 09:44] LABS: Basophils # (auto) 0.03 K/uL (0-0.2); Basophils % (auto) 0.6 %; Eosinophils # (auto) 0.08 K/uL (0-0.50); Eosinophils % (auto) 1.5 %; Hematocrit (blood only) 27.5 % (37.0-47.0); Hemoglobin 9.2 g/dl (12.0-16.0); Immature Granulocytes # (auto) 0.05 K/uL (0.01-0.20); Immature Granulocytes % (auto) 0.9 %; Lymphocytes # (auto) 1.26 K/uL (1.2-3.4); Lymphocytes % (auto) 23.7 %; Mean Corpuscular Hemoglobin 30.6 pg (25.0-34.0); Mean Corpuscular Hgb Conc 33.5 g/dL (32.0-36.0); Mean Corpuscular Volume 91.4 fL (80.0-100.0); Mean Platelet Volume 10.5 fL (9.4-12.4); Monocytes # (auto) 0.65 K/uL (0.11-0.59); Monocytes % (auto) 12.2 %; Neutrophils # (auto) 3.24 K/uL (1.40-6.50); Neutrophils % (auto) 61.1 %; Platelet Count 153 K/uL (130-400); RDW Coefficient of Variation 13.2 % (11.5-14.5); RDW Standard Deviation 43.1 fL (36.4-46.3); Red Blood Count 3.01 M/uL (4.20-5.40); White Blood Count 5.31 K/ul (4.8-10.8)
[2022-11-04 10:01] LABS: Albumin Level 2.9 gm/dl (3.4-5.0); Bilirubin,Total 0.9 mg/dl (0.2-1.0); Calcium 8.4 mg/dl (8.6-10.3); Magnesium 1.3 mg/dl (1.7-2.4); Potassium 3.5 mmol/L (3.5-5.1)
[2022-11-04 10:07] LABS: Albumin Globulin Ratio 1.2 (0.9-2); BUN Creatinine Ratio 32.8 (10-20); Creatinine Clr Calc Pharmacy 60.4 ml/min; Est GFR (African American) 106.3 ml/min; Est GFR (Non-African American) 91.7 ml/min; Globulin 2.5 gm/dl (2.5-4.0); Total Protein 5.4 gm/dl (6.0-8.3)
--- NOTE | 2022-11-04 10:36 | CT Scan Report ---
CT cervical spine wo con CLINICAL HISTORY: 67 years-old Female with multiple falls, head injury. COMPARISON: Head CT of same day, CT cervical spine 6 25,015. TECHNIQUE: Multiple axial CT images of the cervical spine were obtained without contrast. A dose low ering technique was utilized adhering to the principles of ALARA. FINDINGS: Anterior plate and screw fusion with discectomy noted at C4-C6. There is progressive near-c omplete bony fusion of these levels which has progressed compared to the prior. No evidence of hardwa re complication. Mild multilevel uncovertebral hypertrophy and facet arthrosis of the cervical spine. Severe upper thoracic facet arthrosis. Multiple endplate compression of the T3 vertebral body is lik antoinette chronic, however is new from prior. No retropulsion. No acute fracture or subluxation. Mild cervi bunny levoscoliosis. The cervical soft tissues appear unremarkable. The visualized lung apices appear clear. IMPRESSION: No acute cervical spine fracture or subluxation. ACT 112: Negative or not required by law. The above report was generated using voice recognition software. It may contain grammatical, syntax o r spelling errors. Electronically signed by: Colten Dickson M.D. 11/04/2022 10:35 AM
--- NOTE | 2022-11-04 10:36 | CT Scan Report ---
CT OF THE HEAD WITHOUT CONTRAST CLINICAL HISTORY: multiple falls, head injury COMPARISON STUDY: Head CT October 06, 2014. CT DOSE: 1082.50 mGy.cm TECHNIQUE: Helical axial images of the head were obtained without IV contrast. Automated exposure con trol was utilized for the study. A dose lowering technique was utilized adhering to the principles o f ALARA. FINDINGS: No acute intracranial hemorrhage, midline shift or mass effect is present. The ventricular system is unremarkable. The basal cisterns are patent. No extra-axial collections are present. There are no findings to suggest acute dural sinus thrombosis or acute territorial infarct. No significant calvarial abnormalities are present. Visualized portions of the sinuses and mastoid air cells are dinorah ar. Left frontal craniotomy is incidentally noted. IMPRESSION: 1. No acute intracranial findings. No change in appearance of the brain. 2. No calvarial fracture. ACT 112: Negative or not required by law. Electronically signed by: Jeremy Arango M.D. 11/04/2022 10:35 AM
--- NOTE | 2022-11-04 10:55 | XRay Report ---
XR shoulder RT min 2V routine, XR humerus RT 2V CLINICAL HISTORY: right shoulder pain. Fall. COMPARISON STUDY: None. FINDINGS: Comminuted and displaced right humeral neck fracture which extends through the greater tube rosity of the humeral head. No dislocation. There is up to 1 cm of anterior displacement. The right c lavicle is intact. Soft tissue swelling within the right shoulder is noted. The mid to distal humerus is intact. Cervical spinal fusion hardware and spinal stimulator leads are noted. IMPRESSION: 1. Comminuted and displaced right humeral head/neck fracture. 2. No fractures within the mid to distal right humerus. ACT 112: Negative or not required by law. Electronically signed by: Alejandro Walsh M.D. 11/04/2022 10:54 AM
--- NOTE | 2022-11-04 11:31 | XRay Report ---
XR forearm RT 2V HISTORY: 67 years-old Female right arm pain, injury COMPARISON: Right humerus radiograph the same day TECHNIQUE: 2 views of the right forearm FINDINGS: Moderate diffuse soft tissue swelling. Mild cortical thickening of the distal radial metaphysis. No d efinite acute fracture, dislocation or opaque foreign body identified. Nondisplaced coronoid process fracture the proximal ulna with mild corticated margins. Questioned acute nondisplaced fracture of th e distal humeral metaphysis. IMPRESSION: 1. Cortical thickening of the distal radius suggestive of a healed chronic fracture. 2. Acute to subacute appearing nondisplaced coronoid process fracture. 3. Ill-defined lucency of the distal humeral metaphysis may be artifactual or represent a subtle acut e nondisplaced fracture. 4. Moderate diffuse soft tissue swelling. ACT 112: Negative or not required by law. The above report was generated using voice recognition software. It may contain grammatical, syntax o r spelling errors. Electronically signed by: Colten Dickson M.D. 11/04/2022 11:30 AM
--- NOTE | 2022-11-04 11:33 | Electrocardiogram Report ---
Test Reason : Blood Pressure : / mmHG Vent. Rate : 082 BPM Atrial Rate : 082 BPM P-R Int : 148 ms QRS Dur : 074 ms QT Int : 376 ms P-R-T Axes : 070 -40 040 degrees QTc Int : 439 ms Normal sinus rhythm Left axis deviation Low voltage QRS Poor R wave progression, consider anterior GA vs. lead placement vs. LVH Abnormal ECG When compared with ECG of 04-OCT-2022 15:08, Nonspecific T wave abnormality no longer present Confirmed by Mane German ([id number]) on 11/04/2022 11:32:56 AM Referred By: REFERRED SELF Confirmed By:Mane German
[2022-11-04] MEDS ORDERED: MoRPHine SULFATE IR 15 MG TAB (IMMEDIATE RELEASE) PO STA (11:37)
--- NOTE | 2022-11-04 12:05 | XRay Report ---
XR elbow RT 2V CLINICAL HISTORY: right elbow injury COMPARISON STUDY: Right forearm 11/04/2022. FINDINGS: Questionable subtle lucency at the distal humerus. A nondisplaced fracture is not excluded. Subacute to chronic appearing coronoid process of fracture again noted. Soft tissue swelling within the right elbow. An elbow effusion is not confirmed with this could be due to patient positioning. No dislocation. IMPRESSION: 1. Questionable subtle lucency at the distal humerus. This could be due to overlapping artifact or a nondisplaced fracture. 2. Subacute to chronic coronoid process fracture again noted. 3. Diffuse soft tissue swelling. ACT 112: Negative or not required by law. Electronically signed by: Alejandro Walsh M.D. 11/04/2022 12:03 PM
--- NOTE | 2022-11-04 12:22 | XRay Report ---
XR chest 1V portable CLINICAL HISTORY: weakness COMPARISON STUDY: Chest radiograph October 04, 2022 FINDINGS: Lung volumes are normal. Lungs are clear. There is no pneumothorax or pleural effusion. Car diac size is normal. Mediastinal contours are normal. There is no evidence for pulmonary edema. An ac ruby comminuted displaced right humeral head and neck fracture is incidentally noted. There are postop erative findings within the spine. Stimulator device is noted. IMPRESSION: 1. No acute cardiopulmonary findings. 2. Acute comminuted displaced right humeral head and neck fracture. ACT 112: Negative or not required by law. Electronically signed by: Jeremy Arango M.D. 11/04/2022 12:20 PM
[2022-11-04] MEDS ORDERED: ALUMINUM/MAGNESIUM SUSP 30 ML UDC PO PRN (12:24)
[2022-11-04] MEDS ORDERED: POLYETHYLENE (MIRALAX) 17 GM PACK PO PRN (12:24)
[2022-11-04] MEDS ORDERED: MAGNESIUM HYDROXIDE SUSP 30 ML UDC PO PRN (12:24)
--- NOTE | 2022-11-04 12:37 | History & Physical Report ---
Date of Service November 04, 2022 Assessment & Plan (1) Ambulatory dysfunction: (2) Right humeral fracture: (3) Hyperlipemia: (4) GERD (gastroesophageal reflux disease): (5) Depression: (6) Hypertension: (7) Hypomagnesemia: (8) Anemia: Plan 67 year old with ambulatory dysfunction s/p right humeral head/neck fracture; appears to be mechanical in nature and suspected conservative measures; await formal ortho consult. Increased soft tissue swelling of RUE; elevate and monitor for add'l bleeding. Able to make fist and touch thumb to all digits. No neuropathy noted in upper extremity. Incidental anemia finding Hgb 9.2; anemia work up pending. No overt signs of bleeding; will also trend H/H. Chronic ongoing RLE cellulitis; follows with wound clinic and completed Doxy + Amoxicillin 6 weeks ago; continued erythema around arterial ulcer. Obtain RLE Venous Doppler. Start Ancef 2G Q8 and obtain WOCN. Mg+ 1.3; replace with 2 G IV Ambulatory dysfunction: Right Humeral head/neck fracture: Increased falls over the past few months appears to be mechanical in nature Humerus, Shoulder, and Humerus CT: Cortical thickening of the distal radius suggestive of a healed chronic fracture. Acute to subacute appearing nondisplaced coronoid process fracture. Comminuted and displaced right humeral head/neck fracture. Redemonstration of a comminuted and mildly displaced right humeral neck/head fracture. No dislocations within the right shoulder. No acute fractures within the distal right humerus/elbow. Diffuse soft tissue swelling within the right upper extremity that correlates on physical exam; outlined with marker to monitor ecchymosis. Orthopedic surgery consultation placed sling for now. Formal consult will follow Ice with sling Need to reassess and monitor for rhabdo; Able to make fist and touch thumb to all digits. No neuropathy noted in upper extremity. PT/OT for formal evaluation; pt and family open for short term inpt rehab if necessary falls precautions Check Vitamin B12, TSH Anemia: Hgb 9.2 baseline 11.4-12.3 FOBT negative 2019 formal anemia work-up done ferritin level 131, TIBC low normal 255 No acute signs of bleeding some ecchymosis present at fracture site RLE cellulitis: Follows with wound clinic Completed Doxy + Amoxicillin 6 weeks ago Still circumfrential erythema Start Ancef 2 G Q8 WOCN consult Hypomagnesemia: Mg+ 1.3; replace with 2 G IV Recheck Mg+ in AM Chronic Back Pain: Numerous back surgeries Takes Morphine IR 15 mg PRN Was taking Nucynta; adverse side effects led to DC on 10/04/22. H/O Atrial Fibrillation: No episodes of AF since 2009. Has Eliquis PRN but has not taken it for years HLD: Takes simvastatin; continue last lipid panel 06/19/2022; TG 66, HDL 58, LDL 79 Depression: Takes sertraline; continue GERD: Takes omeprazole; continue Disposition: PCP: Dr. Kirby Code Status: DNR/DNI VTE Prophylaxis: TEDs and SCDs for now I spent a total of 88 minutes coordinating, documenting, and providing care for this patient excluding time spent in the performance of separately billed services. All of the aforementioned completed while collaborating with the assigned attending physician for a full treatment plan. Please see their addendum for further details. History of Present Illness Chief Complaint: falls Primary Care Provider: Rain Kirby DO Ms. Small is a 67 year old female that presents to the ED today s/p multiple falls over the past few days. She stated that she was getting into the car and went to hold on to the car door and lost her footing and fell, hitting her face and head. She additionally fell walking at their house outside on uneven small deven. Denies OCASIO, dizziness, LOC, syncope. Three weeks ago she experienced three falls related to being unsteady as well. She does not use a walker or cane but does recognize that she likely should. She typically walks while holding on to her husbands arm. NO appetite changes, bowel or bladder changes. 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 Notes that her falls do occur later in the day as a pattern. Denies speech changes. Incidentally, on blood work, she was fond to have Hgb 9.2. Formal anemia work up in 2005 unremarkable and in 2019 some low Ferritin noted at 131. TIBC was low normal 255. No hypotension apparent. Humerus CT was performed indicating redemonstration of a comminuted and mildly displaced right humeral neck/head fracture. No dislocations within the right shoulder. No acute fractures within the distal right humerus/elbow. Cervical spine CT negative, elbow x-ray nondisplaced fracture; subacute fracture right humeral head and neck fracture with tissue swelling. Head CT negative. Patient has been following with wound clinic as an outpatient for RLE cellulitis related to an arterial ulcer. She completed a Doxy + Amoxicillin abx course six weeks ago. Does take Morphine IR for chronic back pain. Additional PMH includes pAF (not on any anticoagulation), HTN, HLD, depression and GERD. Denies tobacco, alcohol or recreational drug use, including marijuana. Mg 1.2 in ED, No transaminitis. FOBT negative. Will obtain anemia work up and adding on Vitamin B12, TSH levels. Patient will be admitted for further evaluation and management. Please see A/P for further details. Allergies Allergy/AdvReac Type Severity Reaction Status Date / Time sulfamethoxazole Allergy Mild rash Verified 10/21/22 10:07 [From Bactrim] trimethoprim [From Bactrim] Allergy Mild rash Verified 10/21/22 10:07 Home Medications Medication Instructions Recorded Confirmed Type denosumab 60 mg/mL subcutaneous 60 mg subcut Q6MO #1 mL 01/26/19 11/04/22 Rx syringe (Prolia) pregabalin 100 mg capsule (Lyrica) 100 mg PO TID #90 caps 01/26/19 11/04/22 Rx multivitamin (Multiple Vitamins 1 tab PO QAM 04/05/19 11/04/22 History tablet) simvastatin 40 mg tablet 20 mg PO QPM 10/11/19 11/04/22 History calcium carbonate 500 mg calcium 500 mg PO QAM 11/04/19 11/04/22 History (1,250 mg) tablet (Calcium 500) cholecalciferol (vitamin D3) 25 25 mcg PO QAM 11/04/19 11/04/22 History mcg (1,000 unit) tablet (Vitamin D3) ferrous sulfate 325 mg (65 mg 0 mg PO QPM 11/04/19 11/04/22 History iron) tablet aspirin 81 mg tablet,delayed 81 mg PO QAM 08/22/21 11/04/22 History release mirabegron 25 mg tablet,extended 25 mg PO QAM 08/22/21 11/04/22 History release 24 hr (Myrbetriq) sertraline 50 mg tablet 50 mg PO QAM 08/22/21 11/04/22 History furosemide 20 mg tablet (Lasix) 20 mg PO DAILY 10/07/22 11/04/22 History omeprazole 20 mg tablet,delayed 20 mg PO DAILY PRN Other 10/07/22 11/04/22 History release morphine 15 mg immediate release 15 mg PO Q4H PRN Pain 10/21/22 11/04/22 History tablet Past Med/Surg History Medical History (Updated 11/04/22 @ 15:18 by LATASHA Jaramillo) Ambulatory dysfunction Anemia Atrial fibrillation DX 2009 - FOLLOWS W/ DR. ACEVEDO -- TAKES XARELTO PRN ATRIAL FIB Chronic back pain Chronic headaches Degenerative disc disease Depression GERD (gastroesophageal reflux disease) History of esophageal dilatation Hyperlipemia Hypomagnesemia Malignant neoplasm of colon H/O Osteoporosis Right humeral fracture Spinal cord stimulator status Surgical History H/O gastric bypass History of ankle surgery RT History of bilateral breast reduction surgery History of brain surgery 2009 - removal benign tumor History of cardiac catheterization 2005 - [facility] - NO STENTS/ANGIOPLASTY History of carpal tunnel release Rt History of cataract surgery left History of cervical spinal surgery ROM WNL History of cholecystectomy History of colonoscopy History of colonoscopy with polypectomy malignant polyp History of D&C History of esophagogastroduodenoscopy (EGD) History of lumbar spinal fusion X 2 History of repair of hiatal hernia History of tooth extraction History of total abdominal hysterectomy and bilateral salpingo-oophorectomy W/ APPENDECTOMY S/P insertion of spinal cord stimulator (~02/2021) Status post panniculectomy 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 Status post trigger finger release Family History Mother Diabetes Other No family history of adverse response to anesthesia Social History Smoking Status: Never smoker Second Hand Exposure: Yes (as a child); Do You Dip or Chew Tobacco: No; Hx Alcohol Use: Yes Alcohol Intake Frequency: Monthly or Less Hx Substance Use: No Preferred Language: [place] Communication Ability: Effective Visual Impairment: No Limitations Hearing Ability: Normal Cns Required: No Beliefs That Will Affect Care: None marital status: Current Living Situation: Spouse current occupational status: retired Feels Safe at Home: Yes Diet: regular caffeine: No Do you think of yourself as: straight/heterosexual Gender Identity: Female Assistive Devices: Denture - Upper and Glasses Review of Systems Review of Systems: Neuro: (+) Falls, trauma, (-) slurred speech HEENT: (-) OCASIO, dizziness, dysphagia, visual or auditory changes CV: (-) CP, palpitations, swelling Resp: (-) SOB GI: (-) appetite changes, N/V/D, bowel changes : (-) urinary changes Skin: (-) rashes Psych: (-) anxiety, depression Physical Exam Physical Exam: Neuro: AAOx4, PERRLA, no aphagia, memory changes, CNII-XII grossly intact . No neuropathy in upper extremity. HEENT: head normocephalic, moist mucus membranes CV: S1/S2, (-) M/G/R, (-) edema, cap refill < 3 seconds Resp: Lungs CTA in all robles. On RA GI: Abdomen S/NT/ND, Ax4 bowel sounds, (-) CVA tenderness Musculoskeletal: 4/5 B/L UE strength, 4/5 B/L LE strength. Skin: RLE arterial ulcer dime sized anterior roberson. circumfrential erythema around ulcer. Psych: euthymic mood Results & Data Results & Data Vital Signs (Past 12 Hours) Vital Signs Temp Pulse Pulse Resp BP BP Pulse Ox 11/04/22 11:12 72 20 107/63 98 11/04/22 09:43 74 11/04/22 09:00 36.8 C 87 16 111/62 100 Laboratory Results Short CBC 11/04/22 Range/Units 09:20 WBC 5.31 (4.8-10.8) K/ul Hgb 9.2 L (12.0-16.0) g/dl Hct 27.5 L (37.0-47.0) % Plt Count 153 (130-400) K/uL BMP 11/04/22 09:20 Sodium 141 Potassium 3.5 Chloride 102 Carbon Dioxide 34 H BUN 21 Creatinine 0.64 Glucose 125 H Calcium 8.4 L Liver Function 11/04/22 Range/Units 09:20 Total Bilirubin 0.9 (0.2-1.0) mg/dl AST 28 (13-39) U/L ALT 26 (7-52) U/L Alkaline Phosphatase 78 (34-104) U/L Albumin 2.9 L (3.4-5.0) gm/dl Diagnostic Findings Cervical Spine CT 11/04/22 09:19 CT cervical spine wo con CLINICAL HISTORY: 67 years-old Female with multiple falls, head injury. COMPARISON: Head CT of same day, CT cervical spine 6 25,015. TECHNIQUE: Multiple axial CT images of the cervical spine were obtained without contrast. A dose lowering technique was utilized adhering to the principles of ALARA. FINDINGS: Anterior plate and screw fusion with discectomy noted at C4-C6. There is progressive near-complete bony fusion of these levels which has progressed compared to the prior. No evidence of hardware complication. Mild multilevel uncovertebral hypertrophy and facet arthrosis of the cervical spine. Severe upper thoracic facet arthrosis. Multiple endplate compression of the T3 vertebral body is likely chronic, however is new from prior. No retropulsion. No acute fracture or subluxation. Mild cervical levoscoliosis. The cervical soft tissues appear unremarkable. The visualized lung apices appear clear. IMPRESSION: No acute cervical spine fracture or subluxation. ACT 112: Negative or not required by law. The above report was generated using voice recognition software. It may contain grammatical, syntax or spelling errors. Electronically signed by: Colten Dickson M.D. 11/04/2022 10:35 AM Forearm X-Ray 11/04/22 09:19 XR forearm RT 2V HISTORY: 67 years-old Female right arm pain, injury COMPARISON: Right humerus radiograph the same day TECHNIQUE: 2 views of the right forearm FINDINGS: Moderate diffuse soft tissue swelling. Mild cortical thickening of the distal radial metaphysis. No definite acute fracture, dislocation or opaque foreign body identified. Nondisplaced coronoid process fracture the proximal ulna with mild corticated margins. Questioned acute nondisplaced fracture of the distal humeral metaphysis. IMPRESSION: 1. Cortical thickening of the distal radius suggestive of a healed chronic fracture. 2. Acute to subacute appearing nondisplaced coronoid process fracture. 3. Ill-defined lucency of the distal humeral metaphysis may be artifactual or represent a subtle acute nondisplaced fracture. 4. Moderate diffuse soft tissue swelling. ACT 112: Negative or not required by law. The above report was generated using voice recognition software. It may contain grammatical, syntax or spelling errors. Electronically signed by: Colten Dickson M.D. 11/04/2022 11:30 AM Humerus X-Ray 11/04/22 09:19 XR shoulder RT min 2V routine, XR humerus RT 2V CLINICAL HISTORY: right shoulder pain. Fall. COMPARISON STUDY: None. FINDINGS: Comminuted and displaced right humeral neck fracture which extends through the greater tuberosity of the humeral head. No dislocation. There is up to 1 cm of anterior displacement. The right clavicle is intact. Soft tissue swelling within the right shoulder is noted. The mid to distal humerus is intac t. Cervical spinal fusion hardware and spinal stimulator leads are noted. IMPRESSION: 1. Comminuted and displaced right humeral head/neck fracture. 2. No fractures within the mid to distal right humerus. ACT 112: Negative or not required by law. Electronically signed by: Alejandro Walsh M.D. 11/04/2022 10:54 AM Shoulder X-Ray 11/04/22 09:19 XR shoulder RT min 2V routine, XR humerus RT 2V CLINICAL HISTORY: right shoulder pain. Fall. COMPARISON STUDY: None. FINDINGS: Comminuted and displaced right humeral neck fracture which extends through the greater tuberosity of the humeral head. No dislocation. There is up to 1 cm of anterior displacement. The right clavicle is intact. Soft tissue swelling within the right shoulder is noted. The mid to distal humerus is intact. Cervical spinal fusion hardware and spinal stimulator leads are noted. IMPRESSION: 1. Comminuted and displaced right humeral head/neck fracture. 2. No fractures within the mid to distal right humerus. ACT 112: Negative or not required by law. Electronically signed by: Alejandro Walsh M.D. 11/04/2022 10:[address] 11/04/22 09:20 CT OF THE HEAD WITHOUT CONTRAST CLINICAL HISTORY: multiple falls, head injury COMPARISON STUDY: Head CT October 06, 2014. CT DOSE: 1082.50 mGy.cm TECHNIQUE: Helical axial images of the head were obtained without IV contrast. Automated exposure control was utilized for the study. A dose lowering technique was utilized adhering to the principles of ALARA. FINDINGS: No acute intracranial hemorrhage, midline shift or mass effect is present. The ventricular system is unremarkable. The basal cisterns are patent. No extra-axial collections are present. There are no findings to suggest acute dural sinus thrombosis or acute territorial infarct. No significant calvarial abnormalities are present. Visualized portions of the sinuses and mastoid air cells are clear. Left frontal craniotomy is incidentally noted. IMPRESSION: 1. No acute intracranial findings. No change in appearance of the brain. 2. No calvarial fracture. ACT 112: Negative or not required by law. Electronically signed by: Jeremy Arango M.D. 11/04/2022 10:35 AM Chest X-Ray 11/04/22 11:37 XR chest 1V portable CLINICAL HISTORY: weakness COMPARISON STUDY: Chest radiograph October 04, 2022 FINDINGS: Lung volumes are normal. Lungs are clear. There is no pneumothorax or pleural effusion. Cardiac size is normal. Mediastinal contours are normal. There is no evidence for pulmonary edema. An acute comminuted displaced right humeral head and neck fracture is incidentally noted. There are postoperative findings within the spine. Stimulator device is noted. IMPRESSION: 1. No acute cardiopulmonary findings. 2. Acute comminuted displaced right humeral head and neck fracture. ACT 112: Negative or not required by law. Electronically signed by: Jeremy Arango M.D. 11/04/2022 12:20 PM Elbow X-Ray 11/04/22 11:37 XR elbow RT 2V CLINICAL HISTORY: right elbow injury COMPARISON STUDY: Right forearm 11/04/2022. FINDINGS: Questionable subtle lucency at the distal humerus. A nondisplaced fracture is not excluded. Subacute to chronic appearing coronoid process of fracture again noted. Soft tissue swelling within the right elbow. An elbow effusion is not confirmed with this could be due to patient positioning. No dislocation. IMPRESSION: 1. Questionable subtle lucency at the distal humerus. This could be due to overlapping artifact or a nondisplaced fracture. 2. Subacute to chronic coronoid process fracture again noted. 3. Diffuse soft tissue swelling. ACT 112: Negative or not required by law. Electronically signed by: Alejandro Walsh M.D. 11/04/2022 12:03 PM Code Status & VTE Plan Code Status DNR/DNI in the event of cardiac or respiratory arrest VTE Prophylaxis Plan VTE Prophylaxis will be ordered: Yes Supervising Physician Co-Signing Physician Notes Patient was seen and examined independently at bedside. Chart reviewed. Case discussed with Veronika PAGAN and agree with the documentation above. In summary, this is a 67-year-old who presented to ED with ambulatory dysfunction and mechanical fall sustaining right humeral head/neck fracture 4 days back but did not come for evaluation until today. She takes morphine IR 15 mg q4hr at home (states she can't take ER due to her gastric bypass) and it would help her pain somewhat. Denies any lightheadedness, dizziness, palpitations, chest pain, balance issues. On exam, lying comfortably in bed with right upper extremity sling in place. Edema and ecchymosis noted on right shoulder, arm, right side of chest. Right hand swollen but neurovascular status intact. Chest clear, heart sounds normal abdomen benign, neuro nonfocal, right lower extremity cellulitis with edema, right leg wound closing. Vitals stable, labs relatively stable. CT right upper extremity shows humeral fracture. Agree with sling, pain management, Ortho eval, PT OT eval, telemetry. She does have chronic right lower extremity swelling for which she is on Lasix 20 daily. Also has right leg wound and follows wound care and seems to be improving nicely. Does have right leg cellulitis. Agree with Ancef and wound care evaluation. Agree with echo and right lower extremity ultrasound. Hypomagnesemia being repleted. She does have history of paroxysmal A-fib and was on Pradaxa for 3-4 years followed by Xarelto for about a year but was discontinued after her discussion with her cardiology- off of anticoagulation for many years now-she continues to follow with her cardiology annually and has upcoming appointment next month. Rest as per the note above.
--- NOTE | 2022-11-04 12:52 | CT Scan Report ---
RIGHT HUMERUS CT CT DOSE: 838.99 mGy.cm HISTORY: right humerus fx TECHNIQUE: Multiaxial CT images of the right humerus were performed and reformatted in the sagittal a nd coronal plane without the use of contrast. A dose lowering technique was utilized adhering to the principles of ALARA. COMPARISON: Right humerus radiograph 11/04/2022. FINDINGS: Comminuted and is displaced right humeral neck fracture which extends through the greater t uberosity of the humeral head. The fracture is slightly impacted and demonstrates up to 11 mm of late ral displacement. The fracture does not extend to the articular surface of the humeral head. No dislo cation. The visualized distal right clavicle, right scapula, and right ribs are intact. Diffuse subcu taneous edema within the right upper extremity. There is a right shoulder effusion/hemarthrosis noted . No definite fractures identified within the distal right humerus or elbow. Small avulsion fracture at the coronoid process appears to be chronic. No significant elbow effusion. IMPRESSION: 1. Redemonstration of a comminuted and mildly displaced right humeral neck/head fracture. No dislocat ions within the right shoulder. 2. No acute fractures within the distal right humerus/elbow. 3. Diffuse soft tissue swelling within the right upper extremity. ACT 112: Negative or not required by law. Electronically signed by: Alejandro Walsh M.D. 11/04/2022 12:50 PM
[2022-11-04] MEDS ORDERED: ceFAZolin 1000MG 1,000 MG/7.5 ML SYR IV SCH (13:45)
[2022-11-04 13:59] LABS: Ferritin 123.1 ng/ml (8-388)
[2022-11-04 14:49] LABS: T3 Free 2.49 pg/ml (2.3-4.2)
[2022-11-04 14:55] LABS: Thyroid Stimulating Hormone 4.55 uIu/ml (0.300-4.500)
[2022-11-04 14:59] LABS: T4 Free Thyroxine 1.05 ng/dl (0.61-1.60)
--- NOTE | 2022-11-04 15:46 | XCELERA ---
[id number]
[2022-11-04] MEDS ORDERED: PANTOprazole 40 MG TAB PO PRN (16:00)
--- NOTE | 2022-11-04 16:09 | Ultrasound Report ---
US venous doppler LE RT HISTORY: 67 years-old Female dvt rule out acute pain and swelling of the right lower extremity COMPARISON: 10/13/2011 TECHNIQUE: Multiple real-time sonographic images of the right lower extremity deep venous structures were obtained assessing grayscale appearance, color and spectral flow. FINDINGS: Normal flow, compressibility, phasicity and augmentation. Subcutaneous edema. IMPRESSION: No sonographic evidence of deep venous thrombosis. ACT 112: Negative or not required by law. The above report was generated using voice recognition software. It may contain grammatical, syntax o r spelling errors. Electronically signed by: Colten Dickson M.D. 11/04/2022 4:07 PM
[2022-11-04] MEDS: ceFAZolin 2000MG 2,000 MG/15 ML SYR IV SCH ×2 (16:55→20:57)
[2022-11-04] MEDS: MAGNESIUM SULFATE / D5W 1 GM/100 ML BAG IV SCH ×2 (16:55→18:41)
[2022-11-04] MEDS: MoRPHine SULFATE IR 15 MG TAB (IMMEDIATE RELEASE) PO PRN ×2 (16:55→20:57)
[2022-11-04 18:43] LABS: Immature Retic Fraction 27.2 % (2.3-15.9); Reticulocyte % 3.1 % (0.5-2.0); Reticulocytes # 0.09 10^6/uL (0.02-0.10)
[2022-11-04] MEDS: PREGABALIN 100 MG CAP PO SCH (20:57)
[2022-11-04] MEDS: SIMVASTATIN 20 MG TAB PO SCH (20:58)
[2022-11-04] MEDS: FERROUS SULFATE 325 MG TAB PO SCH (20:58)
[2022-11-04] MEDS: ACETAMINOPHEN 325 MG TAB PO PRN (20:59)
[2022-11-04 23:54] LABS: Appearance Urine Clear (Clear); Bacteria Urine Automated Negative (Negative); Bilirubin Urine Negative (Negative); Blood Urine Negative (Negative); Color Urine Orange; Glucose Urine UA Negative (Negative); Ketones Urine Negative (Negative); Leukocyte Esterase Urine Trace (Negative); Nitrite Urine Negative (Negative); Protein Urine Negative (Negative); Specific Gravity Urine 1.022 (1.000-1.030); Urobilinogen Urine Negative (Negative); pH Urine 5.5 (4.5-7.5)
[2022-11-05] MEDS: MoRPHine SULFATE IR 15 MG TAB (IMMEDIATE RELEASE) PO PRN ×3 (06:05→16:38)
[2022-11-05] MEDS: ceFAZolin 2000MG 2,000 MG/15 ML SYR IV SCH ×3 (06:05→22:34)
[2022-11-05 06:39] LABS: Hematocrit (blood only) 22.7 % (37.0-47.0); Hemoglobin 7.7 g/dl (12.0-16.0); Mean Corpuscular Hemoglobin 31.7 pg (25.0-34.0); Mean Corpuscular Hgb Conc 33.9 g/dL (32.0-36.0); Mean Corpuscular Volume 93.4 fL (80.0-100.0); Mean Platelet Volume 11.4 fL (9.4-12.4); Platelet Count 114 K/uL (130-400); RDW Coefficient of Variation 13.2 % (11.5-14.5); RDW Standard Deviation 43.9 fL (36.4-46.3); Red Blood Count 2.43 M/uL (4.20-5.40); White Blood Count 4.07 K/ul (4.8-10.8)
[2022-11-05 07:00] LABS: Albumin Globulin Ratio 1.2 (0.9-2); Albumin Level 2.3 gm/dl (3.4-5.0); BUN Creatinine Ratio 31.6 (10-20); Bilirubin,Total 0.6 mg/dl (0.2-1.0); Calcium 7.7 mg/dl (8.6-10.3); Creatinine Clr Calc Pharmacy 67.9 ml/min; Est GFR (African American) 110.4 ml/min; Est GFR (Non-African American) 95.3 ml/min; Globulin 1.9 gm/dl (2.5-4.0); Magnesium 1.8 mg/dl (1.7-2.4); Potassium 3.2 mmol/L (3.5-5.1); Total Protein 4.2 gm/dl (6.0-8.3)
[2022-11-05] MEDS: ASPIRIN 81 MG ECTAB PO SCH (08:10)
[2022-11-05] MEDS: CALCIUM CARBONATE 500 MG CHEWABLE TAB PO SCH (08:10)
[2022-11-05] MEDS: CHOLECALCIFEROL 1,000 UNITS 25 MCG TAB PO SCH (08:11)
[2022-11-05] MEDS: VIBEGRON 75 MG TAB PO SCH (08:11)
[2022-11-05] MEDS: FUROSEMIDE 20 MG TAB PO SCH (08:11)
[2022-11-05] MEDS: SERTRALINE HCL 50 MG TABLET PO SCH (08:11)
[2022-11-05] MEDS: PREGABALIN 100 MG CAP PO SCH ×3 (08:17→20:38)
[2022-11-05] MEDS: ACETAMINOPHEN 325 MG TAB PO PRN ×2 (08:17→20:38)
--- NOTE | 2022-11-05 13:02 | Orthopedic Consultation ---
Date of Consultation November 05, 2022 Assessment & Plan (1) Fracture of proximal end of right humerus: CT results were reviewed with the patient. Conservative tx was discussed with the patient. She will continue with the immobilizer sling for 3-4 more weeks. I encouraged ROM with the right elbow as she can tolerated. After 3-4 weeks, we may be able to start ROM with PT. Orthopedics to sign off at this time. She may follow up with Dr. Bautista's clinic in 3-4 weeks time for new x-rays and re-evaluation. History of Present Illness Reason for Consultation: right shoulder pain Attending Physician: Erika Craig MD History of Present Illness This is a patient who has sustained two recent falls that injured the right shoulder. She had difficulty with using the arm and significant bruising. X-rays and later a CT scan noted an impacted, comminuted, extra-articular proximal humerus fx. Orthopedics was consulted for definitive tx. Allergies Allergy/AdvReac Type Severity Reaction Status Date / Time sulfamethoxazole Allergy Mild rash Verified 10/21/22 10:07 [From Bactrim] trimethoprim [From Bactrim] Allergy Mild rash Verified 10/21/22 10:07 Home Medications Medication Instructions Recorded Confirmed Type denosumab 60 mg/mL subcutaneous 60 mg subcut Q6MO #1 mL 01/26/19 11/04/22 Rx syringe (Prolia) pregabalin 100 mg capsule (Lyrica) 100 mg PO TID #90 caps 01/26/19 11/04/22 Rx multivitamin (Multiple Vitamins 1 tab PO QAM 04/05/19 11/04/22 History tablet) simvastatin 40 mg tablet 20 mg PO QPM 10/11/19 11/04/22 History calcium carbonate 500 mg calcium 500 mg PO QAM 11/04/19 11/04/22 History (1,250 mg) tablet (Calcium 500) cholecalciferol (vitamin D3) 25 25 mcg PO QAM 11/04/19 11/04/22 History mcg (1,000 unit) tablet (Vitamin D3) ferrous sulfate 325 mg (65 mg 0 mg PO QPM 11/04/19 11/04/22 History iron) tablet aspirin 81 mg tablet,delayed 81 mg PO QAM 08/22/21 11/04/22 History release mirabegron 25 mg tablet,extended 25 mg PO QAM 08/22/21 11/04/22 History release 24 hr (Myrbetriq) sertraline 50 mg tablet 50 mg PO QAM 08/22/21 11/04/22 History furosemide 20 mg tablet (Lasix) 20 mg PO DAILY 10/07/22 11/04/22 History omeprazole 20 mg tablet,delayed 20 mg PO DAILY PRN Other 10/07/22 11/04/22 History release morphine 15 mg immediate release 15 mg PO Q4H PRN Pain 10/21/22 11/04/22 History tablet Patient History Medical History Ambulatory dysfunction Anemia Atrial fibrillation DX 2009 - FOLLOWS W/ DR. ACEVEDO -- TAKES XARELTO PRN ATRIAL FIB Chronic back pain Chronic headaches Degenerative disc disease Depression GERD (gastroesophageal reflux disease) History of esophageal dilatation Hyperlipemia Hypomagnesemia Malignant neoplasm of colon H/O Osteoporosis Right humeral fracture Spinal cord stimulator status Surgical History H/O gastric bypass History of ankle surgery RT History of bilateral breast reduction surgery History of brain surgery 2010 - removal benign tumor History of cardiac catheterization 2006 - [facility] - NO STENTS/ANGIOPLASTY History of carpal tunnel release Rt History of cataract surgery left History of cervical spinal surgery ROM WNL History of cholecystectomy History of colonoscopy History of colonoscopy with polypectomy malignant polyp History of D&C History of esophagogastroduodenoscopy (EGD) History of lumbar spinal fusion X 2 History of repair of hiatal hernia History of tooth extraction History of total abdominal hysterectomy and bilateral salpingo-oophorectomy W/ APPENDECTOMY S/P insertion of spinal cord stimulator (~02/2021) Status post panniculectomy 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 Status post trigger finger release Family History Mother Diabetes Other No family history of adverse response to anesthesia Social History Smoking Status: Never smoker Second Hand Exposure: Yes; Do You Dip or Chew Tobacco: No; Hx Alcohol Use: Yes Alcohol Intake Frequency: Monthly or Less Hx Substance Use: No Preferred Language: Barbadian Communication Ability: Effective Visual Impairment: No Limitations Hearing Ability: Normal Tappet Adjuster Required: No Beliefs That Will Affect Care: None marital status: Current Living Situation: Spouse current occupational status: retired Other Information That Helps Us Care for You: No Feels Safe at Home: Yes Safety Concerns: Feels Safe At This Time Diet: regular caffeine: No Do you think of yourself as: straight/heterosexual Gender Identity: Female Assistive Devices: Denture - Upper and Glasses Physical Exam Constitutional: WD/WN, vitals as above no acute distress (sitting in her bed, comfortable) ENMT: external ear and nose normal, oropharynx normal Neck: trachea midline Musculoskeletal: Shoulder: + ecchymosis (moderate right axilla and medial upp er arm), + limited ROM (right shoulder) and + joint line tenderness (generalized right proximal humerus); no deformity and no skin erythema Skin: no rashes, warm and dry Trauma: no evidence of skin trauma Neurologic: normal touch/pain/proprioception Psychiatric: A+Ox3, euthymic affect Speech: normal rate/rhythm/volume of speech Results & Data Vital Signs (Past 12 Hours) Vital Signs Temp Pulse Pulse Resp BP Pulse Ox O2 Del Method 11/05/22 07:00 66 11/05/22 11:11 36.4 C L 73 20 105/70 100 Room Air 11/05/22 11:06 Room Air 11/05/22 07:29 36.6 C 63 20 106/69 93 Room Air 11/05/22 03:30 36.3 C L 67 16 111/70 95 Room Air 11/05/22 02:[address] right shoulder reviewed. Comminuted and impacted proximal humerus fx. The fx does not appear to extend into the articular surface of the humeral head.
[2022-11-05] MEDS ORDERED: POTASSIUM CHLORIDE CRTAB 20 MEQ TABCR PO STA (13:25)
[2022-11-05] MEDS: ONDANSETRON INJ 2 MG/ML 2 ML VIAL IV PRN (13:41)
--- NOTE | 2022-11-05 15:47 | Hospitalist Progress Note ---
Date of Service November 05, 2022 Assessment & Plan (1) Ambulatory dysfunction: Plan: 67 year old with ambulatory dysfunction s/p right humeral head/neck fracture; appears to be mechanical in nature and suspected conservative measures; await formal ortho consult. Increased soft tissue swelling of RUE; elevate and monitor for add'l bleeding. Able to make fist and touch thumb to all digits. No neuropathy noted in upper extremity. Incidental anemia finding Hgb 9.2; anemia work up pending. No overt signs of bleeding; will also trend H/H. Chronic ongoing RLE cellulitis; follows with wound clinic and completed Doxy + Amoxicillin 6 weeks ago; continued erythema around arterial ulcer. Obtain RLE Venous Doppler. Start Ancef 2G Q8 and obtain WOCN. Mg+ 1.3; replace with 2 G IV Further management as below We will get PT and OT evaluation (2) Right humeral fracture: Plan: Right Humeral head/neck fracture: Increased falls over the past few months appears to be mechanical in nature Suffered a fall while getting into the car a few days back Humerus, Shoulder, and Humerus CT: Cortical thickening of the distal radius suggestive of a healed chronic fracture. Acute to subacute appearing n ondisplaced coronoid process fracture. Comminuted and displaced right humeral head/neck fracture. Redemonstration of a comminuted and mildly displaced right humeral neck/head fracture. No dislocations within the right shoulder. No acute fractures within the distal right humerus/elbow. Diffuse soft tissue swelling within the right upper extremity that correlates on physical exam; outlined with marker to monitor ecchymosis. Appreciate Ortho input and recommendation-conservative management for now and evaluation in the orthopedic office in about 3 to 4 weeks Immobilize the right upper extremity in a sling and reevaluate in 3 to 4 weeks for further management plan Has been moving the hand and the fingers No neuropathy noted in upper extremity. PT/OT for formal evaluation; pt and family open for short term inpt rehab if necessary Right upper extremity swelling Likely secondary to fracture with surrounding hemorrhage May have injury secondary to fall Will need to elevate the right forearm over a pillow while sleeping and lying down in bed Anemia: Hgb 9.2 baseline 11.4-12.3 Likely secondary to hemorrhage from fall FOBT negative 2019 formal anemia work-up done ferritin level 131, TIBC low normal 255 Hemoglobin is dropping and noted to be 7.7 as of today If it drops further, below 7 will need to give transfusion RLE cellulitis: Follows with wound clinic Completed Doxy + Amoxicillin 6 weeks ago Still circumfrential erythema Start Ancef 2 G Q8 WOCN consult-appreciate input and recommendation No spreading cellulitis (3) Hyperlipemia: (4) GERD (gastroesophageal reflux disease): (5) Depression: (6) Hypertension: (7) Hypomagnesemia: (8) Anemia: Plan Hypomagnesemia: Hypokalemia Mg+ 1.3; replace with 2 G IV Recheck Mg+ in AM-has been normalized We will replace and recheck Chronic Back Pain: Numerous back surgeries Takes Morphine IR 15 mg PRN Was taking Nucynta; adverse side effects led to DC on 10/04/22. H/O Atrial Fibrillation: No episodes of AF since 2009. Has Eliquis PRN but has not taken it for years HLD: Takes simvastatin; continue last lipid panel 06/19/2022; TG 66, HDL 58, LDL 79 Depression: Takes sertraline; continue GERD: Takes omeprazole; continue Disposition: PCP: Dr. Kirby Code Status: DNR/DNI VTE Prophylaxis: TEDs and SCDs for now due to blood loss anemia Admission and Anticipated Discharge Date Admission Date: November 04, 2022 Subjective 11/05/2022 The patient was seen and examined in medical telemetry unit Has had a mechanical fall while getting into the car a few days back and fractured the right humerus Has swelling of the right upper extremity and pain with movement Denies any fever, any chest pain or shortness of breath, any abdominal pain nausea or vomiting Review of Systems Review of Systems: All systems reviewed and are unremarkable except as noted below Musculoskeletal: Right upper extremity swelling, status post fracture of the right humerus Physical Exam Physical Exam: Lying in bed with moderate discomfort due to right upper extremity pain Constitutional: + ill appearing and average body habitus Eyes: PERRL, conjunctivae normal, anicteric sclerae ENMT: external ear and nose normal, oropharynx normal Neck: trachea midline, no thyromegaly Respiratory: no respiratory distress Auscultation: + diminished lung sounds and + crackles (Minimal crackles at the bases) Cardiovascular: Rate/Rhythm: regular rate and regular rhythm; not tachycardic Heart Sounds: normal S1 and normal S2; no murmur Extremities: + edema (Trace edema bilaterally) Gastrointestinal (Abdomen): Inspection/Auscultation: normal bowel sounds; abdomen not distended Percussion/Palpation: abdomen soft; abdomen nontender Musculoskeletal: Extremities: + extremities abnormal to inspection (Right upper extremity is in sling with swelling of the right foreararm,hand) Neurologic: Alert, awake and oriented x3 Results & Data Results & Data Vital Signs (Past 12 Hours) Vital Signs Temp Pulse Pulse Resp BP Pulse Ox O2 Del Method 11/05/22 15:14 36.6 C 69 20 97/64 L 95 Room Air 11/05/22 14:34 73 11/05/22 07:00 66 11/05/22 11:11 36.4 C L 73 20 105/70 100 Room Air 11/05/22 11:06 Room Air 11/05/22 07:29 36.6 C 63 20 106/69 93 Room Air Laboratory Results Short CBC 11/04/22 11/05/22 Range/Units 18:06 05:50 WBC 4.07 L (4.8-10.8) K/ul Hgb 9.0 L 7.7 L (12.0-16.0) g/dl Hct 27.0 L 22.7 L (37.0-47.0) % Plt Count 114 L (130-400) K/uL BMP 11/05/22 05:50 Sodium 142 Potassium 3.2 L Chloride 105 Carbon Dioxide 34 H BUN 18 Creatinine 0.57 L Glucose 100 H Calcium 7.7 L Liver Function 11/05/22 Range/Units 05:50 Total Bilirubin 0.6 (0.2-1.0) mg/dl AST 21 (13-39) U/L ALT 15 (7-52) U/L Alkaline Phosphatase 59 (34-104) U/L Albumin 2.3 L (3.4-5.0) gm/dl Urine 11/04/22 Range/Units 23:11 Urine Color [place] Urine Appearance Clear (Clear) Urine pH 5.5 (4.5-7.5) Ur Specific [place] 1.022 (1.000-1.030) Urine Protein Negative (Negative) Urine Glucose (UA) Negative (Negative) Medications Administered Current Inpatient Medications Acetaminophen (Acetaminophen 325 Mg Tab) 650 mg PO Q4H PRN PRN Reason: Pain or Fever Stop: 12/04/22 12:23 Last Admin: 11/05/22 08:17 Dose: 650 mg Al Hydrox/Mg Hydrox/Simethicone (Aluminum/Magnesium Susp 30 Ml Udc) 15 ml PO Q4H PRN PRN Reason: Dyspepsia Stop: 12/04/22 12:23 Aspirin (Aspirin 81 Mg Ectab) 81 mg PO QAM [facility] Stop: 12/05/22 08:59 Last Admin: 11/05/22 08:10 Dose: 81 mg Calcium Carbonate (Calcium Carbonate 500 Mg Chewable Tab) 500 mg PO QAM [facility] Stop: 12/05/22 08:59 Last Admin: 11/05/22 08:10 Dose: 500 mg Ferrous Sulfate (Ferrous Sulfate 325 Mg Tab) 325 mg PO QPM [facility] Stop: 12/04/22 20:59 Last Admin: 11/04/22 20:58 Dose: 325 mg Furosemide (Furosemide 20 Mg Tab) 20 mg PO DAILY [facility] Stop: 12/05/22 08:59 Last Admin: 11/05/22 08:11 Dose: 20 mg Cefazolin Sodium (Ancef 2000mg) 2,000 mg in 15 mls @ 3.75 mls/min IV Q8H [facility] Stop: 11/11/22 13:59 Last Admin: 11/05/22 13:42 Dose: 3.75 mls/min Magnesium Hydroxide (Magnesium Hydroxide Susp 30 Ml Udc) 30 ml PO Q12H PRN PRN Reason: Constipation Stop: 12/04/22 12:23 Morphine Sulfate (Morphine Sulfate Ir 15 Mg Tab (Immediate Release)) 15 mg PO Q4H PRN PRN Reason: Pain Stop: 11/18/22 15:21 Last Admin: 11/05/22 11:55 Dose: 15 mg Ondansetron HCl (Ondansetron Inj 2 Mg/Ml 2 Ml Vial) 4 mg IV Q6H PRN PRN Reason: Nausea Stop: 12/04/22 12:23 Last Admin: 11/05/22 13:41 Dose: 4 mg Pantoprazole Sodium (Pantoprazole 40 Mg Tab) 40 mg PO DAILY PRN PRN Reason: Other Stop: 12/04/22 15:59 Polyethylene Glycol (Polyethylene (Miralax) 17 Gm Pack) 17 gm PO DAILY PRN PRN Reason: Constipation Stop: 12/04/22 12:23 Pregabalin (Pregabalin 100 Mg Cap) 100 mg PO TID [facility] Stop: 12/04/22 20:59 Last Admin: 11/05/22 13:42 Dose: 100 mg Sertraline HCl (Sertraline Hcl 50 Mg Tablet) [facility] Stop: 12/05/22 08:59 Last Admin: 11/05/22 08:11 Dose: 50 mg Simvastatin (Simvastatin 20 Mg Tab) 20 mg PO QPM [facility] Stop: 12/04/22 20:59 Last Admin: 11/04/22 20:58 Dose: 20 mg Vibegron (Vibegron 75 Mg Tab) 75 mg PO [facility] Stop: 12/05/22 08:59 Last Admin: 11/05/22 08:11 Dose: 75 mg Vitamin D (Cholecalciferol 1,000 Units 25 Mcg Tab) 1,000 units PO [facility] Stop: 12/05/22 08:59 Last Admin: 11/05/22 08:11 Dose: 1,000 units
[2022-11-05] MEDS: FERROUS SULFATE 325 MG TAB PO SCH (20:39)
[2022-11-05] MEDS: SIMVASTATIN 20 MG TAB PO SCH (20:39)
[2022-11-06] MEDS: ceFAZolin 2000MG 2,000 MG/15 ML SYR IV SCH ×3 (06:47→22:07)
[2022-11-06 07:56] LABS: Basophils # (auto) 0.02 K/uL (0-0.2); Basophils % (auto) 0.6 %; Eosinophils # (auto) 0.12 K/uL (0-0.50); Eosinophils % (auto) 3.3 %; Hematocrit (blood only) 21.8 % (37.0-47.0); Hemoglobin 7.3 g/dl (12.0-16.0); Immature Granulocytes # (auto) 0.02 K/uL (0.01-0.20); Immature Granulocytes % (auto) 0.6 %; Lymphocytes # (auto) 1.28 K/uL (1.2-3.4); Lymphocytes % (auto) 35.6 %; Mean Corpuscular Hemoglobin 31.6 pg (25.0-34.0); Mean Corpuscular Hgb Conc 33.5 g/dL (32.0-36.0); Mean Corpuscular Volume 94.4 fL (80.0-100.0); Mean Platelet Volume 10.9 fL (9.4-12.4); Monocytes # (auto) 0.39 K/uL (0.11-0.59); Monocytes % (auto) 10.8 %; Neutrophils # (auto) 1.77 K/uL (1.40-6.50); Neutrophils % (auto) 49.1 %; Platelet Count 117 K/uL (130-400); RDW Coefficient of Variation 13.8 % (11.5-14.5); Red Blood Count 2.31 M/uL (4.20-5.40)
[2022-11-06 08:20] LABS: Calcium 7.6 mg/dl (8.6-10.3); Creatinine Clr Calc Pharmacy 60.4 ml/min; Est GFR (African American) 106.3 ml/min; Est GFR (Non-African American) 91.7 ml/min; Potassium 3.7 mmol/L (3.5-5.1)
[2022-11-06] MEDS: ASPIRIN 81 MG ECTAB PO SCH (08:21)
[2022-11-06 08:25] LABS: Polychromasia 1+
[2022-11-06] MEDS: MoRPHine SULFATE IR 15 MG TAB (IMMEDIATE RELEASE) PO PRN ×3 (09:23→19:59)
[2022-11-06] MEDS: VIBEGRON 75 MG TAB PO SCH (09:24)
[2022-11-06] MEDS: ONDANSETRON INJ 2 MG/ML 2 ML VIAL IV PRN (09:24)
[2022-11-06] MEDS: CALCIUM CARBONATE 500 MG CHEWABLE TAB PO SCH (09:24)
[2022-11-06] MEDS: FUROSEMIDE 20 MG TAB PO SCH (09:24)
[2022-11-06] MEDS: PREGABALIN 100 MG CAP PO SCH ×3 (09:24→20:06)
[2022-11-06] MEDS: SERTRALINE HCL 50 MG TABLET PO SCH (09:25)
[2022-11-06] MEDS: CHOLECALCIFEROL 1,000 UNITS 25 MCG TAB PO SCH (09:25)
--- NOTE | 2022-11-06 17:21 | Hospitalist Progress Note ---
Date of Service November 06, 2022 Assessment & Plan (1) Ambulatory dysfunction: Plan: Will need Rehab Multiple falls at home and now with right humeral head/neck fracture (below) (2) Right humeral fracture: Plan: Right Humeral head/neck fracture: Increased falls over the past few months appears to be mechanical in nature Suffered a fall while getting into the car a few days back Humerus, Shoulder, and Humerus CT: Cortical thickening of the distal radius suggestive of a healed chronic fracture. Acute to subacute appearing nondisplaced coronoid process fracture. Comminuted and displaced right humeral head/neck fracture. Redemonstration of a comminuted and mildly displaced right humeral neck/head fracture. No dislocations within the right shoulder. No acute fractures within the distal right humerus/elbow. Diffuse soft tissue swelling within the right upper extremity that correlates on physical exam; outlined with marker to monitor ecchymosis. Appreciate Ortho input and recommendation-conservative management for now and evaluation in the orthopedic office in about 3 to 4 weeks Immobilize the right upper extremity in a sling and reevaluate in 3 to 4 weeks for further management plan Acute blood loss Anemia: Hgb 9.2 baseline 11.4-12.3 Likely secondary to hemorrhage from fall FOBT negative 2019 formal anemia work-up done ferritin level 131, TIBC low normal 255 Repeat CBC tomorrow, may need transfusion Hold aspirin RLE cellulitis: Follows with wound clinic Completed Doxy + Amoxicillin 6 weeks ago Still circumfrential erythema unchanged. Will monitor for now Start Ancef 2 G Q8 WOCN consult-appreciate input and recommendation No spreading cellulitis (3) Hyperlipemia: (4) GERD (gastroesophageal reflux disease): (5) Depression: (6) Hypertension: (7) Hypomagnesemia: (8) Anemia: Plan Hypomagnesemia: Hypokalemia replete PRN Chronic Back Pain: Numerous back surgeries Takes Morphine IR 15 mg PRN Was taking Nucynta; adverse side effects led to DC on 10/04/22. H/O Atrial Fibrillation: No episodes of AF since 2009. Has Eliquis prescription but has not taken it for years HLD: Takes simvastatin; continue last lipid panel 06/19/2022; TG 66, HDL 58, LDL 79 Depression: Takes sertraline; continue GERD: Takes omeprazole; continue Disposition: PCP: Dr. Kirby Code Status: DNR/DNI VTE Prophylaxis: TEDs and SCDs for now due to blood loss anemia Admission and Anticipated Discharge Date Admission Date: November 04, 2022 Subjective Right arm with swelling and pain Right leg redness (minimal) is unchanged Feels weak Review of Systems Review of Systems: as above Physical Exam Physical Exam: Appears pale, no acute distress, appears older than stated age Respiratory: breathing comfortable on room air, no wheezing/rhonchi Cardiovascular: regular rate and rhythm, no murmurs/rubs Gastrointestinal (Abdomen): soft, non tender, non distended Musculoskeletal: trace lower extremity edema (around ankles) Skin: Right leg ulcer has closed, some mild erythema above right ankle Significant bruising right arm Neurologic: awake, alert, spontaneously moving extremities Results & Data Results & Data Vital Signs (Past 12 Hours) Vital Signs Temp Pulse Pulse Resp BP Pulse Ox O2 Del Method 11/06/22 15:20 37.1 C 67 16 105/62 96 Room Air 11/06/22 15:00 76 11/06/22 06:00 74 11/06/22 07:39 36.5 C 64 16 103/66 98 Room Air
[2022-11-06] MEDS: ACETAMINOPHEN 325 MG TAB PO PRN (19:59)
[2022-11-06] MEDS: FERROUS SULFATE 325 MG TAB PO SCH (20:00)
[2022-11-06] MEDS: SIMVASTATIN 20 MG TAB PO SCH (20:00)
[2022-11-07] MEDS: ceFAZolin 2000MG 2,000 MG/15 ML SYR IV SCH ×2 (05:21→14:37)
[2022-11-07 07:46] LABS: Hematocrit (blood only) 22.6 % (37.0-47.0); Hemoglobin 7.5 g/dl (12.0-16.0); Mean Corpuscular Hemoglobin 31.3 pg (25.0-34.0); Mean Corpuscular Hgb Conc 33.2 g/dL (32.0-36.0); Mean Corpuscular Volume 94.2 fL (80.0-100.0); Mean Platelet Volume 10.6 fL (9.4-12.4); Platelet Count 126 K/uL (130-400); RDW Coefficient of Variation 14.2 % (11.5-14.5); RDW Standard Deviation 47.5 fL (36.4-46.3); White Blood Count 3.59 K/ul (4.8-10.8)
[2022-11-07] MEDS: CALCIUM CARBONATE 500 MG CHEWABLE TAB PO SCH (07:54)
[2022-11-07] MEDS: PREGABALIN 100 MG CAP PO SCH ×3 (07:54→20:33)
[2022-11-07] MEDS: MoRPHine SULFATE IR 15 MG TAB (IMMEDIATE RELEASE) PO PRN ×4 (07:54→20:35)
[2022-11-07] MEDS: FUROSEMIDE 20 MG TAB PO SCH (07:55)
[2022-11-07] MEDS: CHOLECALCIFEROL 1,000 UNITS 25 MCG TAB PO SCH (07:55)
[2022-11-07] MEDS: SERTRALINE HCL 50 MG TABLET PO SCH (07:55)
[2022-11-07] MEDS: VIBEGRON 75 MG TAB PO SCH (07:55)
[2022-11-07 08:02] LABS: Potassium 4.1 mmol/L (3.5-5.1)
[2022-11-07 08:03] LABS: Creatinine Clr Calc Pharmacy 64.5 ml/min; Est GFR (African American) 108.5 ml/min; Est GFR (Non-African American) 93.7 ml/min
[2022-11-07] MEDS: FERROUS SULFATE 325 MG TAB PO SCH (20:31)
[2022-11-07] MEDS: SIMVASTATIN 20 MG TAB PO SCH (20:32)
[2022-11-07] MEDS: ACETAMINOPHEN 325 MG TAB PO PRN (20:34)
--- NOTE | 2022-11-07 20:36 | Hospitalist Progress Note ---
Date of Service November 07, 2022 Assessment & Plan (1) Ambulatory dysfunction: Plan: Will need Rehab Multiple falls at home and now with right humeral head/neck fracture (below) (2) Right humeral fracture: Plan: Right Humeral head/neck fracture: Increased falls over the past few months appears to be mechanical in nature Suffered a fall while getting into the car a few days back Humerus, Shoulder, and Humerus CT: Cortical thickening of the distal radius suggestive of a healed chronic fracture. Acute to subacute appearing nondisplaced coronoid process fracture. Comminuted and displaced right humeral head/neck fracture. Redemonstration of a comminuted and mildly displaced right humeral neck/head fracture. No dislocations within the right shoulder. No acute fractures within the distal right humerus/elbow. Diffuse soft tissue swelling within the right upper extremity that correlates on physical exam; outlined with marker to monitor ecchymosis. Appreciate Ortho input and recommendation-conservative management for now and evaluation in the orthopedic office in about 3 to 4 weeks Immobilize the right upper extremity in a sling and reevaluate in 3 to 4 weeks for further management plan Acute blood loss Anemia: Hgb 9.2 baseline 11.4-12.3 Likely secondary to hemorrhage from fall FOBT negative 2019 formal anemia work-up done ferritin level 131, TIBC low normal 255 Hold aspirin H/H above 7, no symptoms. No indication for transfusion currently. Repeat CBC tomorrow RLE cellulitis: Follows with wound clinic Completed Doxy + Amoxicillin 6 weeks ago Still circumfrential erythema unchanged. Patient with history of chronic lower extremity lymphedema. Will discontinue Ancef and monitor WOCN consult-appreciate input and recommendation (3) Hyperlipemia: (4) GERD (gastroesophageal reflux disease): (5) Depression: (6) Hypertension: (7) Hypomagnesemia: (8) Anemia: Plan Hypomagnesemia: Hypokalemia replete PRN Chronic Back Pain: Numerous back surgeries Takes Morphine IR 15 mg PRN Was taking Nucynta; adverse side effects led to DC on 10/04/22. H/O Atrial Fibrillation: No episodes of AF since 2009. Has Eliquis prescription but has not taken it for years HLD: Takes simvastatin; continue last lipid panel 06/19/2022; TG 66, HDL 58, LDL 79 Depression: Takes sertraline; continue GERD: Takes omeprazole; continue Disposition: PCP: Dr. Kirby Code Status: DNR/DNI VTE Prophylaxis: TEDs and SCDs for now due to blood loss anemia Admission and Anticipated Discharge Date Admission Date: November 04, 2022 Subjective Denies numbness/tingling of right hand Overall feels well No new complaints currently Review of Systems Review of Systems: as above Physical Exam Physical Exam: Sitting in chair, no acute distress, non toxic Respiratory: Breathing comfortably, no wheezing/rhonchi/rales Cardiovascular: regular rate and rhythm, no murmurs/rubs Gastrointestinal (Abdomen): soft, non tender Musculoskeletal: right arm swelling and bruising. Distal right fingers are warm and perfused Skin: right arm bruising Neurologic: awake, alert, spontaneously moving extremities (left arm and bilateral legs) Sitting in chair at bedside Results & Data Results & Data Vital Signs (Past 12 Hours) Vital Signs Temp Pulse Pulse Resp BP Pulse Ox O2 Del Method 11/07/22 20:16 37 C 73 18 101/67 97 Room Air 11/07/22 17:12 36.6 C 76 17 101/68 99 Room Air 11/07/22 14:14 78 11/07/22 11:00 Room Air 11/07/22 11:13 83 17 100/63 94 Room Air
[2022-11-08] MEDS: ONDANSETRON INJ 2 MG/ML 2 ML VIAL IV PRN (02:30)
[2022-11-08] MEDS: MoRPHine SULFATE IR 15 MG TAB (IMMEDIATE RELEASE) PO PRN ×5 (02:30→21:57)
[2022-11-08] MEDS: CALCIUM CARBONATE 500 MG CHEWABLE TAB PO SCH (09:47)
[2022-11-08] MEDS: ACETAMINOPHEN 325 MG TAB PO PRN ×2 (09:47→18:00)
[2022-11-08] MEDS: PREGABALIN 100 MG CAP PO SCH ×3 (09:47→19:39)
[2022-11-08] MEDS: FUROSEMIDE 20 MG TAB PO SCH (09:48)
[2022-11-08] MEDS: CHOLECALCIFEROL 1,000 UNITS 25 MCG TAB PO SCH (09:48)
[2022-11-08 09:49] LABS: Hematocrit (blood only) 25.9 % (37.0-47.0); Hemoglobin 8.6 g/dl (12.0-16.0); Mean Corpuscular Hgb Conc 33.2 g/dL (32.0-36.0); Mean Corpuscular Volume 96.3 fL (80.0-100.0); Mean Platelet Volume 10.9 fL (9.4-12.4); Platelet Count 175 K/uL (130-400); RDW Coefficient of Variation 14.3 % (11.5-14.5); RDW Standard Deviation 48.3 fL (36.4-46.3); Red Blood Count 2.69 M/uL (4.20-5.40); White Blood Count 4.59 K/ul (4.8-10.8)
[2022-11-08] MEDS: SERTRALINE HCL 50 MG TABLET PO SCH (09:49)
[2022-11-08] MEDS: VIBEGRON 75 MG TAB PO SCH (09:49)
[2022-11-08 09:57] LABS: BUN Creatinine Ratio 16.4 (10-20); Calcium 8.1 mg/dl (8.6-10.3); Est GFR (African American) 98.1 ml/min; Est GFR (Non-African American) 84.6 ml/min; Magnesium 1.7 mg/dl (1.7-2.4); Potassium 4.2 mmol/L (3.5-5.1)
[2022-11-08] MEDS: LINACLOTIDE 145 MCG CAPSULE PO SCH (13:11)
[2022-11-08] MEDS ORDERED: COVID19 BIVALENT Vaccine (Pfizer) 30mcg/0.3mL SDV IM ONE (16:36)
--- NOTE | 2022-11-08 16:41 | Hospitalist Progress Note ---
Date of Service November 08, 2022 Assessment & Plan (1) Ambulatory dysfunction: Plan: Will need Rehab Multiple falls at home and now with right humeral head/neck fracture (below) (2) Right humeral fracture: Plan: Right Humeral head/neck fracture: Increased falls over the past few months appears to be mechanical in nature Suffered a fall while getting into the car a few days back Humerus, Shoulder, and Humerus CT: Cortical thickening of the distal radius suggestive of a healed chronic fracture. Acute to subacute appearing nondisplaced coronoid process fracture. Comminuted and displaced right humeral head/neck fracture. Redemonstration of a comminuted and mildly displaced right humeral neck/head fracture. No dislocations within the right shoulder. No acute fractures within the distal right humerus/elbow. Diffuse soft tissue swelling within the right upper extremity that correlates on physical exam; outlined with marker to monitor ecchymosis. Appreciate Ortho input and recommendation-conservative management for now and evaluation in the orthopedic office in about 3 to 4 weeks Immobilize the right upper extremity in a sling and reevaluate in 3 to 4 weeks for further management plan Acute blood loss Anemia: Hgb 9.2 baseline 11.4-12.3 Likely secondary to hemorrhage from fall FOBT negative 2019 formal anemia work-up done ferritin level 131, TIBC low normal 255 Hold aspirin H/h remains stable. No indications for transfusion RLE cellulitis: Chronic right leg lymphedema Follows with wound clinic Completed Doxy + Amoxicillin 6 weeks ago Still circumfrential erythema unchanged. Patient with history of chronic lower extremity lymphedema. Will discontinue Ancef and monitor. LE ultrasound negative for DVT WOCN consult-appreciate input and recommendation (3) Hyperlipemia: (4) GERD (gastroesophageal reflux disease): (5) Depression: (6) Hypertension: (7) Hypomagnesemia: (8) Anemia: Plan Hypomagnesemia: Hypokalemia replete PRN Chronic Back Pain: Numerous back surgeries Takes Morphine IR 15 mg PRN Was taking Nucynta; adverse side effects led to DC on 10/04/22. H/O Atrial Fibrillation: No episodes of AF since 2009. Has Eliquis prescription but has not taken it for years HLD: Takes simvastatin; continue last lipid panel 06/19/2022; TG 66, HDL 58, LDL 79 Depression: Takes sertraline; continue GERD: Takes omeprazole; continue Disposition: PCP: Dr. Keiter Code Status: DNR/DNI VTE Prophylaxis: TEDs and SCDs for now due to blood loss anemia Admission and Anticipated Discharge Date Admission Date: November 04, 2022 Subjective Patient feels well Right arm tender after working with PT. Denies numbness/tingling of right fingers/hand Waiting for [facility] evaluation for placement Review of Systems Review of Systems: as above Physical Exam Physical Exam: sitting in chair, pleasant and comfortable Respiratory: breathing comfortably on room air, no wheezing/rhonchi Cardiovascular: regular rate and rhythm, no murmurs/rubs Gastrointestinal (Abdomen): soft, non tender Musculoskeletal: right arm swelling, arm in sling. Distal finger is warm Skin: bruising of right arm Neurologic: awake, alert, spontaneously moving extremities, answers questions appropriately Results & Data Results & Data Vital Signs (Past 12 Hours) Vital Signs Temp Pulse Pulse Resp BP Pulse Ox O2 Del Method 11/08/22 15:27 36.7 C 78 18 99/59 L 93 Room Air 11/08/22 08:00 67 11/08/22 12:20 36.9 C 73 18 119/68 93 Room Air 11/08/22 07:22 36.6 C 78 18 113/69 96 Room Air
[2022-11-08] MEDS: SIMVASTATIN 20 MG TAB PO SCH (19:39)
[2022-11-08] MEDS: FERROUS SULFATE 325 MG TAB PO SCH (19:39)
[2022-11-08] MEDS: MELATONIN 3 MG TAB PO PRN (21:57)
[2022-11-09] MEDS: MoRPHine SULFATE IR 15 MG TAB (IMMEDIATE RELEASE) PO PRN ×5 (03:24→22:56)
[2022-11-09 06:30] LABS: Hematocrit (blood only) 22.7 % (37.0-47.0); Hemoglobin 7.5 g/dl (12.0-16.0); Mean Corpuscular Hemoglobin 31.6 pg (25.0-34.0); Mean Corpuscular Volume 95.8 fL (80.0-100.0); Mean Platelet Volume 10.3 fL (9.4-12.4); Platelet Count 146 K/uL (130-400); RDW Coefficient of Variation 14.6 % (11.5-14.5); RDW Standard Deviation 49.4 fL (36.4-46.3); Red Blood Count 2.37 M/uL (4.20-5.40); White Blood Count 4.57 K/ul (4.8-10.8)
[2022-11-09] MEDS: PREGABALIN 100 MG CAP PO SCH ×3 (08:12→20:53)
[2022-11-09] MEDS: CALCIUM CARBONATE 500 MG CHEWABLE TAB PO SCH (08:12)
[2022-11-09] MEDS: ACETAMINOPHEN 325 MG TAB PO PRN ×4 (08:12→22:57)
[2022-11-09] MEDS: CHOLECALCIFEROL 1,000 UNITS 25 MCG TAB PO SCH (08:12)
[2022-11-09] MEDS: LINACLOTIDE 145 MCG CAPSULE PO SCH (08:13)
[2022-11-09] MEDS: FUROSEMIDE 20 MG TAB PO SCH (08:13)
[2022-11-09] MEDS: SERTRALINE HCL 50 MG TABLET PO SCH (08:13)
[2022-11-09] MEDS: VIBEGRON 75 MG TAB PO SCH (08:13)
[2022-11-09] MEDS ORDERED: FUROSEMIDE 40 MG/4 ML VIAL IV ONE (12:10)
[2022-11-09] MEDS ORDERED: SODIUM CHLORIDE 0.9% 250 ML IV PRN (12:10)
--- NOTE | 2022-11-09 13:11 | Hospitalist Progress Note ---
Date of Service November 09, 2022 Assessment & Plan (1) Ambulatory dysfunction: Plan: Will need Rehab Multiple falls at home and now with right humeral head/neck fracture (below) (2) Right humeral fracture: Plan: Right Humeral head/neck fracture: Increased falls over the past few months appears to be mechanical in nature Suffered a fall while getting into the car a few days back Humerus, Shoulder, and Humerus CT: Cortical thickening of the distal radius suggestive of a healed chronic fracture. Acute to subacute appearing nondisplaced coronoid process fracture. Comminuted and displaced right humeral head/neck fracture. Redemonstration of a comminuted and mildly displaced right humeral neck/head fracture. No dislocations within the right shoulder. No acute fractures within the distal right humerus/elbow. Diffuse soft tissue swelling within the right upper extremity that correlates on physical exam; outlined with marker to monitor ecchymosis. Appreciate Ortho input and recommendation-conservative management for now and evaluation in the orthopedic office in about 3 to 4 weeks Immobilize the right upper extremity in a sling and reevaluate in 3 to 4 weeks for further management plan Acute blood loss Anemia: Hgb 9.2 baseline 11.4-12.3 Likely secondary to hemorrhage from fall FOBT negative 2019 formal anemia work-up done ferritin level 131, TIBC low normal 255 Hold aspirin H/h remains stable between 7-8. Feels weak and looks pale. Will give 1 unit RBC now, consent obtained. After transfusion, will give lasix 20mg IV once to avoid worsening leg swelling RLE cellulitis: Chronic right leg lymphedema Follows with wound clinic Completed Doxy + Amoxicillin 6 weeks ago Still circumfrential erythema unchanged. Patient with history of chronic lower extremity lymphedema. Monitor off antibiotics. LE ultrasound negative for DVT WOCN consult-appreciate input and recommendation (3) Hyperlipemia: (4) GERD (gastroesophageal reflux disease): (5) Depression: (6) Hypertension: (7) Hypomagnesemia: (8) Anemia: Plan Hypomagnesemia: Hypokalemia replete PRN Chronic Back Pain: Numerous back surgeries Takes Morphine IR 15 mg PRN Was taking Nucynta; adverse side effects led to DC on 10/04/22. H/O Atrial Fibrillation: No episodes of AF since 2009. Has Eliquis prescription but has not taken it for years HLD: Takes simvastatin; continue last lipid panel 06/19/2022; TG 66, HDL 58, LDL 79 Depression: Takes sertraline; continue GERD: Takes omeprazole; continue Disposition: PCP: Dr. Kirby Code Status: DNR/DNI VTE Prophylaxis: TEDs and SCDs for now due to blood loss anemia Admission and Anticipated Discharge Date Admission Date: November 04, 2022 Subjective Feels well. A little pale and weak No new arm pain No numbness/tingling of her right hand We discussed blood transfusion risks/benefits and she is agreeable to receiving a transfusion. 1 unit packed RBC ordered (Note that Patient signed consent form with her left hand and she is right hand dominant so her signature looks different than her usual) Review of Systems Review of Systems: as above Physical Exam Physical Exam: sitting in bed, pleasant and comfortable ENMT: appears pale Respiratory: breathing comfortably on room air, no wheezing/rhonchi Cardiovascular: regular rate and rhythm, no murmurs/rubs Gastrointestinal (Abdomen): soft, non tender, non distended Musculoskeletal: right arm with swelling, distal right hand also swollen, patient able to wiggle and flex her fingers chronic right leg lymphedema Skin: bruising of right hand, arm right leg wound is healing, right leg mild redness is unchanged Neurologic: awake, alert, spontaneously moving extremities Results & Data Results & Data Vital Signs (Past 12 Hours) Vital Signs Temp Pulse Resp BP Pulse Ox O2 Del Method 11/09/22 11:43 36.7 C 70 18 103/68 95 Room Air 11/09/22 08:02 36.8 C 67 18 92/56 L 99 Room Air 11/09/22 03:48 36.4 C L 70 18 102/66 95 Room Air
[2022-11-09] MEDS: SIMVASTATIN 20 MG TAB PO SCH (20:53)
[2022-11-09] MEDS: FERROUS SULFATE 325 MG TAB PO SCH (20:53)
[2022-11-09] MEDS: MELATONIN 3 MG TAB PO PRN (20:53)
[2022-11-10] MEDS: ACETAMINOPHEN 325 MG TAB PO PRN ×5 (03:30→21:49)
[2022-11-10] MEDS: MoRPHine SULFATE IR 15 MG TAB (IMMEDIATE RELEASE) PO PRN ×5 (03:30→21:49)
[2022-11-10] MEDS: CHOLECALCIFEROL 1,000 UNITS 25 MCG TAB PO SCH (07:40)
[2022-11-10] MEDS: CALCIUM CARBONATE 500 MG CHEWABLE TAB PO SCH (07:40)
[2022-11-10] MEDS: FUROSEMIDE 20 MG TAB PO SCH (07:41)
[2022-11-10] MEDS: SERTRALINE HCL 50 MG TABLET PO SCH (07:41)
[2022-11-10] MEDS: VIBEGRON 75 MG TAB PO SCH (07:41)
[2022-11-10] MEDS: LINACLOTIDE 145 MCG CAPSULE PO SCH (07:41)
[2022-11-10] MEDS: PREGABALIN 100 MG CAP PO SCH ×3 (07:46→19:50)
[2022-11-10 07:54] LABS: Hematocrit (blood only) 28.4 % (37.0-47.0); Hemoglobin 9.3 g/dl (12.0-16.0); Mean Corpuscular Hemoglobin 31.7 pg (25.0-34.0); Mean Corpuscular Hgb Conc 32.7 g/dL (32.0-36.0); Mean Corpuscular Volume 96.9 fL (80.0-100.0); Mean Platelet Volume 10.5 fL (9.4-12.4); Platelet Count 140 K/uL (130-400); RDW Coefficient of Variation 14.8 % (11.5-14.5); RDW Standard Deviation 50.2 fL (36.4-46.3); Red Blood Count 2.93 M/uL (4.20-5.40); White Blood Count 4.44 K/ul (4.8-10.8)
[2022-11-10 08:08] LABS: BUN Creatinine Ratio 37.5 (10-20); Calcium 8.3 mg/dl (8.6-10.3); Creatinine Clr Calc Pharmacy 80.6 ml/min; Est GFR (African American) 116.8 ml/min; Est GFR (Non-African American) 100.8 ml/min; Magnesium 1.7 mg/dl (1.7-2.4); Potassium 4.2 mmol/L (3.5-5.1)
--- NOTE | 2022-11-10 13:32 | Hospitalist Progress Note ---
Date of Service November 10, 2022 Assessment & Plan (1) Ambulatory dysfunction: Plan: Will need Rehab Multiple falls at home and now with right humeral head/neck fracture (below) (2) Right humeral fracture: Plan: Right Humeral head/neck fracture: Increased falls over the past few months appears to be mechanical in nature Suffered a fall while getting into the car a few days back Humerus, Shoulder, and Humerus CT: Cortical thickening of the distal radius suggestive of a healed chronic fracture. Acute to subacute appearing nondisplaced coronoid process fracture. Comminuted and displaced right humeral head/neck fracture. Redemonstration of a comminuted and mildly displaced right humeral neck/head fracture. No dislocations within the right shoulder. No acute fractures within the distal right humerus/elbow. Diffuse soft tissue swelling within the right upper extremity that correlates on physical exam; outlined with marker to monitor ecchymosis. Appreciate Ortho input and recommendation-conservative management for now and evaluation in the orthopedic office in about 3 to 4 weeks Immobilize the right upper extremity in a sling and reevaluate in 3 to 4 weeks for further management plan Acute blood loss Anemia: Hgb 9.2 baseline 11.4-12.3 Likely secondary to hemorrhage from fall FOBT negative 2019 formal anemia work-up done ferritin level 131, TIBC low normal 255 Hold aspirin received 1 unit pRBC 11/09 with appropriate response. RLE cellulitis: Chronic right leg lymphedema Follows with wound clinic Completed Doxy + Amoxicillin 6 weeks ago Still circumferential erythema unchanged. Patient with history of chronic lower extremity lymphedema. Monitor off antibiotics. LE ultrasound negative for DVT WOCN consult-appreciate input and recommendation (3) Hyperlipemia: (4) GERD (gastroesophageal reflux disease): (5) Depression: (6) Hypertension: (7) Hypomagnesemia: (8) Anemia: Plan Hypomagnesemia: Hypokalemia replete PRN Chronic Back Pain: Numerous back surgeries Takes Morphine IR 15 mg PRN Was taking Nucynta; adverse side effects led to DC on 10/04/22. H/O Atrial Fibrillation: No episodes of AF since 2009. Has Eliquis prescription but has not taken it for years HLD: Takes simvastatin; continue last lipid panel 06/19/2022; TG 66, HDL 58, LDL 79 Depression: Takes sertraline; continue GERD: Takes omeprazole; continue Disposition: PCP: Dr. Kirby Code Status: DNR/DNI VTE Prophylaxis: TEDs and SCDs for now due to blood loss anemia Patient is stable for discharge. Pending placement to [facility] but waiting for insurance authorization Admission and Anticipated Discharge Date Admission Date: November 04, 2022 Subjective Received 1 unit RBC yesterday for ongoing anemia with weakness. Afterwards received lasix 20mg IV once. Feels well. Moving her bowels now that she is back on her home linzess Tolerating diet Denies right hand pain or numbness Sleeping well overnight with melatonin Review of Systems Review of Systems: as above Physical Exam Physical Exam: sitting in chair, no acute distress, pleasant and comfortable Respiratory: breathing comfortably on room air, no wheezing/rhonchi/rales Cardiovascular: regular rate and rhythm, no murmurs/rubs Gastrointestinal (Abdomen): soft, non tender Musculoskeletal: right hand/arm swollen but not tense, not tight, distal fingers are warm Skin: bruising of right arm Neurologic: awake, alert, spontaneously moving extremities Results & Data Results & Data Vital Signs (Past 12 Hours) Vital Signs Temp Pulse Resp BP Pulse Ox O2 Del Method 11/10/22 12:29 36.7 C 68 18 95/65 L 95 Room Air 11/10/22 08:02 36.9 C 66 18 116/68 98 Room Air 11/10/22 04:14 36.6 C 64 18 117/74 96 Room Air
[2022-11-10] MEDS: SIMVASTATIN 20 MG TAB PO SCH (19:50)
[2022-11-10] MEDS: FERROUS SULFATE 325 MG TAB PO SCH (19:50)
[2022-11-10] MEDS: MELATONIN 3 MG TAB PO PRN (21:49)
[2022-11-11] MEDS: ACETAMINOPHEN 325 MG TAB PO PRN ×3 (05:35→13:17)
[2022-11-11] MEDS: MoRPHine SULFATE IR 15 MG TAB (IMMEDIATE RELEASE) PO PRN ×3 (05:35→13:17)
[2022-11-11] MEDS: CHOLECALCIFEROL 1,000 UNITS 25 MCG TAB PO SCH (09:33)
[2022-11-11] MEDS: VIBEGRON 75 MG TAB PO SCH (09:33)
[2022-11-11] MEDS: CALCIUM CARBONATE 500 MG CHEWABLE TAB PO SCH (09:33)
[2022-11-11] MEDS: SERTRALINE HCL 50 MG TABLET PO SCH (09:33)
[2022-11-11] MEDS: FUROSEMIDE 20 MG TAB PO SCH (09:33)
[2022-11-11] MEDS: PREGABALIN 100 MG CAP PO SCH (09:34)
[2022-11-11] MEDS: LINACLOTIDE 145 MCG CAPSULE PO SCH (09:34)
--- NOTE | 2022-11-11 11:09 | Discharge Summary ---
Date of Service November 11, 2022 Admission HPI Per Admitting Provider Ms. Small is a 67 year old female that presents to the ED today s/p multiple falls over the past few days. She stated that she was getting into the car and went to hold on to the car door and lost her footing and fell, hitting her face and head. She additionally fell walking at their house outside on uneven small deven. Denies OCASIO, dizziness, LOC, syncope. Three weeks ago she experienced three falls related to being unsteady as well. She does not use a walker or cane but does recognize that she likely should. She typically walks while holding on to her husbands arm. NO appetite changes, bowel or bladder changes. 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 Notes that her falls do occur later in the day as a pattern. Denies speech changes. Incidentally, on blood work, she was fond to have Hgb 9.2. Formal anemia work up in 2005 unremarkable and in 2019 some low Ferritin noted at 131. TIBC was low normal 255. No hypotension apparent. Humerus CT was performed indicating redemonstration of a comminuted and mildly displaced right humeral neck/head fracture. No dislocations within the right shoulder. No acute fractures within the distal right humerus/elbow. Cervical spine CT negative, elbow x-ray nondisplaced fracture; subacute fracture right humeral head and neck fracture with tissue swelling. Head CT negative. Patient has been following with wound clinic as an outpatient for RLE cellulitis related to an arterial ulcer. She completed a Doxy + Amoxicillin abx course six weeks ago. Does take Morphine IR for chronic back pain. Additional PMH includes pAF (not on any anticoagulation), HTN, HLD, depression and GERD. Denies tobacco, alcohol or recreational drug use, including marijuana. Mg 1.2 in ED, No transaminitis. FOBT negative. Will obtain anemia work up and adding on Vitamin B12, TSH levels. Patient will be admitted for further evaluation and management. Please see A/P for further details. Principal Diagnosis Right humerus fracture Acute blood loss anemia Discharge Exam Patient was seen in her room on the morning of discharge She is sitting in the chair. Her right arm this morning hurts but she is getting tylenol and morphine now Denies numbness/tingling or worsening swelling of the arm Breathing comfortably on room air, no accessory muscle use, no wheezing CV- regular rate and rhythm Extr- chronic right lower extremity edema skin- right leg ulcer is healed, redness is chronic Discharge Data Allergies Allergy/AdvReac Type Severity Reaction Status Date / Time sulfamethoxazole Allergy Mild rash Verified 10/21/22 10:07 [From Bactrim] trimethoprim [From Bactrim] Allergy Mild rash Verified 10/21/22 10:07 Consultations 11/04/22 13:14 Consult Orthopedic Surgery Routine Ordered Studies 11/04/22 09:19 CT cervical spine wo con Stat 11/04/22 09:20 CT head/brain wo con Stat 11/04/22 11:44 CT humerus RT wo con Stat 11/04/22 13:39 US venous doppler LE RT Routine Hospital Course (1) Ambulatory dysfunction: Will need Rehab Multiple falls at home and now with right humeral head/neck fracture (below) (2) Right humeral fracture: Right Humeral head/neck fracture: Increased falls over the past few months appears to be mechanical in nature Suffered a fall while getting into the car a few days back Humerus, Shoulder, and Humerus CT: Cortical thickening of the distal radius suggestive of a healed chronic fracture. Acute to subacute appearing nondisplaced coronoid process fracture. Comminuted and displaced right humeral head/neck fracture. Redemonstration of a comminuted and mildly displaced right humeral neck/head fracture. No dislocations within the right shoulder. No acute fractures within the distal right humerus/elbow. Diffuse soft tissue swelling within the right upper extremity that correlates on physical exam; outlined with marker to monitor ecchymosis. Appreciate Ortho input and recommendation-conservative management for now and evaluation in the orthopedic office in about 3 to 4 weeks Immobilize the right upper extremity in a sling and reevaluate in 3 to 4 weeks for further management plan. Acute blood loss Anemia: Baseline 11.4-12.3 Likely secondary to hemorrhage from fall FOBT negative 2019 formal anemia work-up done ferritin level 131, TIBC low normal 255 Hold aspirin Received 1 unit pRBC 11/09 with appropriate response. RLE cellulitis: Chronic right leg lymphedema Follows with wound clinic Completed Doxy + Amoxicillin 6 weeks ago Still circumferential erythema unchanged. Patient with history of chronic lower extremity lymphedema. Monitor off antibiotics. LE ultrasound negative for DVT WOCN consult-appreciate input and recommendation (3) Hyperlipemia: (4) GERD (gastroesophageal reflux disease): (5) Depression: (6) Hypertension: (7) Hypomagnesemia: (8) Anemia: Plan Hypomagnesemia: Hypokalemia replete PRN Chronic Back Pain: Numerous back surgeries Takes Morphine IR 15 mg PRN Was taking Nucynta; adverse side effects led to DC on 10/04/22. H/O Atrial Fibrillation: No episodes of AF since 2009. Has Eliquis prescription but has not taken it for years HLD: Takes simvastatin; continue last lipid panel 06/19/2022; TG 66, HDL 58, LDL 79 Depression: Takes sertraline; continue GERD: Takes omeprazole; continue Disposition: PCP: Dr. Kirby Code Status: DNR/DNI VTE Prophylaxis: TEDs and SCDs for now due to blood loss anemia Patient is stable for discharge. Pending placement to [facility] but waiting for insurance authorization Total Time Total Time Spent Total Time Spent (In Minutes): 35 Discharge Plan Discharge Items Patient Disposition: Transfer Inpatient Rehab Fac Reason For Visit: HUMERUS FRACTURE Discharge Diagnosis: Right humerus fracture Acute blood loss anemia Activity: As commented below Non-emergency contact: Primary Care Provider and Surgeon Call non-emergency contact if: you have any medication questions Follow-up/Referrals: Rain Kirby DO [Primary Care Provider] - Ricky Bautista MD [Surgeon] - (Follow up in 3-4 weeks for x-rays and re- evaluation.) Diet: Regular Addtl Attending Provider Instructions: Please follow up at Lymphedema clinic Addtl Chip Mucker Provider Instructions: Patient to remain in sling at all times over the next 3-4 weeks. She may have the sling off for bathing if she feels comfortable. No range of motion of the right shoulder. Encourage range of motion as tolerated with the right elbow. Follow up with Dr. Bautista's clinic in 3-4 weeks for new x-rays and re- evaluation. Pending Studies at Discharge: No Stand-Alone Forms: [employer] Skilled Items Patient informed of condition?: Yes DNR: No Discharge Level of Care: Acute rehab Communicable Disease: No Discharge Prognosis: Stable Lines: None Urinary Catheter: No Medications and DC Order Prescriptions: New polyethylene glycol 3350 [Miralax] 17 gram Powder In Packet 17 g PO DAILY PRN (Reason: constipation) 14 Days Qty: 14 0RF melatonin 3 mg Tablet 3 mg PO HS PRN (Reason: sleep) Qty: 30 0RF acetaminophen 325 mg Tablet 650 mg PO TID 5 Days Qty: 30 0RF Continued furosemide [Lasix] 20 mg tablet 20 mg PO DAILY morphine 15 mg tablet 15 mg PO Q4H PRN (Reason: Pain) pregabalin [Lyrica] 100 mg capsule 100 mg PO TID Qty: 90 0RF Prolia 60 mg/mL syringe 60 mg SQ Q6MO Qty: 1 0RF Rx Instructions: next dose in January multivitamin [Multiple Vitamins] tablet 1 tab PO QAM simvastatin 40 mg tablet 20 mg PO QPM calcium carbonate [Calcium 500] 500 mg calcium (1,250 mg) Tablet 500 mg PO QAM ferrous sulfate 325 mg (65 mg iron) Tablet 0 mg PO QPM Rx Instructions: hasn't been taking it cholecalciferol (vitamin D3) [Vitamin D3] 25 mcg (1,000 unit) Tablet 25 mcg PO QAM sertraline 50 mg Tablet 50 mg PO QAM aspirin 81 mg tablet,delayed release (DR/EC) 81 mg PO QAM Myrbetriq 25 mg Tablet Extended Release 24 Hr 25 mg PO QAM omeprazole 20 mg tablet,delayed release (DR/EC) 20 mg PO DAILY PRN (Reason: Other) Discharge Orders: Discharge Order (Routine); Ordered 11/11/22 Ordered By: Susie Lopez Admission Data Admit Date/Time: 11/04/22 12:24 Attending Provider: Susie Lopez Admit Provider: Jace Hung Primary Care Provider: Rain Kirby Other Providers: Gianfranco Sears ; Jace Hung ; Renzo Botello ; Erika Craig ; [place] ; [facility]
== END 2022-11-11 16:11 | DRG 563 ==
LOC: ED 08:59 → SUATTDRO 12:24 → 2W 12:24